=== PATIENT | male | born 1945 | race Caucasian/White ===

== ENCOUNTER 2017-11-02 16:20 | Emergency (ER) | payer MEDICARE, OTHER ==
[~2017-11-02] VITALS: Ht 190.5 cm; Wt 140.0 kg
[2017-11-02 17:28] VITALS: BP 166/79
== END 2017-11-02 17:30 | disposition left against medical advice (07) ==
LOC: ER 16:21
DX: I10 Essential (primary) hypertension (principal); Z53.21 Procedure and treatment not carried out due to patient leaving prior to being seen by health care provider

== ENCOUNTER 2017-11-03 09:24 | Emergency (ER) | payer MEDICARE, OTHER ==
[~2017-11-03] VITALS: Ht 190.5 cm; Wt 139.0 kg
[2017-11-03 09:32] VITALS: BP 172/81
== END 2017-11-03 11:55 | disposition home or self-care (01) ==
LOC: ER 09:25
DX: I10 Essential (primary) hypertension (principal)
CPT/HCPCS: 99281

== ENCOUNTER → 2021-02-28 | Outpatient (CLI) | payer MEDICARE ==
[~2021-02-28] MED LIST: BARIUM SULFATE 340 ML SUSP.RECON***PROCEDURE AREA ONLY**DONT ENTER PO ONE
== END | disposition home or self-care (01) ==
LOC: RAD 10:06
PROVIDERS: ATTEND Family Medicine
DX: R13.10 Dysphagia, unspecified (principal)
CPT/HCPCS: 74220

== ENCOUNTER 2022-07-28 13:01 | Inpatient (IN) | payer MEDICARE ==
[~2022-07-28] VITALS: Ht 188 cm; Wt 109.9 kg
[2022-07-28 13:33] LABS: BASOPHILS # (AUTO) 0.1 X10'3 (0-0.2); BASOPHILS % (AUTO) 0.7 % (0-1); EOSINOPHILS # (AUTO) 0.6 X10'3 (0-0.9); EOSINOPHILS % (AUTO) 4.9 % (0-6); HEMATOCRIT 47.8 % (42.0-52.0); HEMOGLOBIN 15.7 g/dl (14.0-17.9); LYMPHOCYTES # (AUTO) 3.2 X10'3 (1.1-4.8); LYMPHOCYTES % (AUTO) 25.9 % (21-51); MEAN CORPUSCULAR HEMOGLOBIN 28.2 PG (27.0-31.0); MEAN CORPUSCULAR HGB CONC 32.8 g/dL (33.0-36.5); MEAN CORPUSCULAR VOLUME 86.2 FL (78-98); MEAN PLATELET VOLUME 10.6 FL (7.4-10.4); MONOCYTES # (AUTO) 0.9 X10'3 (0-0.9); NEUTROPHILS # (AUTO) 7.5 X10'3 (1.8-7.7); NEUTROPHILS % (AUTO) 61.5 % (42-75); PLATELET COUNT 302 X10'3 (140-440); RED BLOOD COUNT 5.55 X10'6 (4.70-6.10); RED CELL DISTRIBUTION WIDTH 13.4 % (11.5-14.5); WHITE BLOOD COUNT 12.3 X10'3 (4.5-11.0)
--- NOTE | 2022-07-28 13:49 | NUR ---
first contact. pt is ao4 slightly hard of hearing. pt denies dizziness/lightheadedness. pt stated pain left shoulder. no swelling reddness or deformity noted. limited range of motion to affect area. strong pulses. resp even unlabored. skin w/d/i pink.
[2022-07-28 13:54] LABS: ALANINE AMINOTRANSFERASE 23 U/L (12-78); ALBUMIN 3.3 G/DL (3.4-5.0); ALBUMIN/GLOBULIN RATIO 0.8 (1.1-1.5); ALKALINE PHOSPHATASE 72 IU/L (46-116); ANION GAP 12 (8-16); ASPARTATE AMINO TRANSFERASE 41 U/L (10-37); BILIRUBIN,TOTAL 0.5 MG/DL (0.1-1.0); BLOOD UREA NITROGEN 25 MG/DL (7-18); BUN/CREATININE RATIO 15.7 (5.4-32.0); CALCIUM 9.6 MG/DL (8.5-10.1); CHLORIDE 100 MMOL/L (99-107); CREATININE 1.59 MG/DL (0.60-1.10); GLUCOSE 137 MG/DL (70-104); POTASSIUM 3.6 MMOL/L (3.5-5.1); SODIUM 133 MMOL/L (135-145); TOTAL CARBON DIOXIDE 20.9 MMOL/L (24-32); TOTAL PROTEIN 7.4 G/DL (6.4-8.2); eGFR 42 ML/MIN
--- NOTE | 2022-07-28 16:29 | NUR ---
per provider request pt is unable to walk. pt is able to sit at bedside but unable to stand. pt stated he feels dizzy. pt placed back into [facility] provider is aware.
[2022-07-28] MEDS ORDERED: VALS1TAB76 PO (17:02)
[2022-07-28] MEDS ORDERED: GABA600T13 PO (17:02)
[2022-07-28] MEDS ORDERED: METF-436 PO (17:02)
[2022-07-28] MEDS ORDERED: NPH,100V2 SQ (17:02)
[2022-07-28] MEDS ORDERED: SERT-434 PO (17:02)
[2022-07-28] MEDS ORDERED: LIDOcaine 2% 10ml TOPICAL JELLY (Urojet) TP ONE (17:30)
--- NOTE | 2022-07-28 17:52 | NUR ---
ambrocio inserted with no issues. approx 400 ml of yellow urine noted. sample collected and sent to lab
[2022-07-28] MEDS ORDERED: DEXTROSE 15 GM of carb/4 tabs (each vial/BOTTLE has 4 tablets) PO PRN ×2 (18:35)
[2022-07-28] MEDS ORDERED: potassium Cl 20 mEq SR tablet PO PRN ×2 (18:35)
[2022-07-28] MEDS ORDERED: dextrose 50%-water 50ml dispensing syringe IV PRN ×2 (18:35)
[2022-07-28] MEDS ORDERED: acetaminophen 650mg rectal suppository RC PRN (18:35)
[2022-07-28] MEDS ORDERED: morphine 2 MG/ML inj. syringe IV PRN ×2 (18:35)
[2022-07-28] MEDS ORDERED: potassium Cl 40MEQ/1/2NS 520ml 520 ML IV PRN (18:35)
[2022-07-28] MEDS ORDERED: magnesium Cl slow-release 64mg tablet PO PRN (18:35)
[2022-07-28] MEDS ORDERED: PERFLUTREN PROTEIN-A MICROSPHR (Optison) 0.22 MG/ML 3ML VIAL IV ONE (18:35)
[2022-07-28] MEDS ORDERED: glucagon, human recombinant 1mg kit SUBCUT PRN (18:35)
[2022-07-28] MEDS ORDERED: ondansetron/PF 4mg/2ml inj IV PRN (18:35)
[2022-07-28] MEDS ORDERED: magnesium 4gm in 100ml NS 100 ML IV PRN (18:35)
[2022-07-28] MEDS ORDERED: MESSAGE TO PHARMACY PO ONE (18:35)
[2022-07-28 19:04] LABS: CLARITY,URINE CLEAR (Clear); COLOR,URINE YELLOW (Yellow); GLUCOSE, URINE >=1000 mg/dl (Neg); KETONES,URINE NEGATIVE (Neg); LEUKOCYTE ESTERASE ,URINE NEGATIVE (Neg); NITRITES, URINE NEGATIVE (Neg); OCCULT BLOOD,URINE NEGATIVE (Neg); PROTEIN,URINE TRACE mg/dl (Neg); UROBILINOGEN,URINE 0.2 E.U/dL (0.2-1.0)
[2022-07-28 19:05] LABS: UA COLLECTION TYPE NON-SPECIFIED
[2022-07-28 19:07] LABS: BACTERIA,URINE FEW /HPF (Neg); RBC,URINE 0-2 /HPF (0-2); SQUAMOUS EPITHELIAL CELL,UR FEW /LPF (FEW); WBC,URINE 0-4 /HPF (0-4)
[2022-07-28] MEDS: normal saline 1000ml 1,000 ML IV SCH (19:22)
[2022-07-28 19:43] LABS: HEMOGLOBIN A1C 12.4 % (4.5-6.2)
[2022-07-28] MEDS: K and/or MAG REPLACEMENT MC SCH (20:00)
--- NOTE | 2022-07-28 20:21 | NUR ---
Sat patient up for sandwich, HR went up to 120, pt turned pale. RN helped pt back to bed and had his sandwich in bed
[2022-07-28] MEDS: heparin, porcine 5000 units/ml vial SQ SCH (20:52)
[2022-07-28] MEDS: insulin glargine (Lantus) pen - multi-dose SQ SCH (21:55)
[2022-07-29 01:00] VITALS: BP 137/80
--- NOTE | 2022-07-29 01:00 | NUR ---
received pt from er, only complaint from pt was genital spasms from ambrocio, told pt he has right to dc, he said please do, so no complaints from procedure, will monitor urine output and inform day shift of situation
--- NOTE | 2022-07-29 06:38 | NUR ---
Patient in room PCU 3013. I have received report from VERENA ALVES and had the opportunity to ask questions and assume patient care.
[2022-07-29 06:55] VITALS: BP 102/47
[2022-07-29 07:01] LABS: BASOPHILS # (AUTO) 0.1 X10'3 (0-0.2); BASOPHILS % (AUTO) 0.7 % (0-1); EOSINOPHILS # (AUTO) 0.6 X10'3 (0-0.9); EOSINOPHILS % (AUTO) 5.1 % (0-6); HEMATOCRIT 40.5 % (42.0-52.0); HEMOGLOBIN 13.7 g/dl (14.0-17.9); LYMPHOCYTES # (AUTO) 2.6 X10'3 (1.1-4.8); LYMPHOCYTES % (AUTO) 22.3 % (21-51); MEAN CORPUSCULAR HGB CONC 33.9 g/dL (33.0-36.5); MEAN CORPUSCULAR VOLUME 85.5 FL (78-98); MEAN PLATELET VOLUME 10.6 FL (7.4-10.4); MONOCYTES # (AUTO) 0.8 X10'3 (0-0.9); MONOCYTES % (AUTO) 7.3 % (2-12); NEUTROPHILS # (AUTO) 7.4 X10'3 (1.8-7.7); NEUTROPHILS % (AUTO) 64.6 % (42-75); PLATELET COUNT 270 X10'3 (140-440); RED BLOOD COUNT 4.74 X10'6 (4.70-6.10); RED CELL DISTRIBUTION WIDTH 13.2 % (11.5-14.5); WHITE BLOOD COUNT 11.5 X10'3 (4.5-11.0)
[2022-07-29 08:00] VITALS: BP_SYST 107; BP_SYST 110; BP_SYST 124; BP_DIAS 59; BP_DIAS 61; BP_DIAS 73
[2022-07-29] MEDS: normal saline 1000ml 1,000 ML IV SCH ×2 (08:00→16:04)
[2022-07-29] MEDS ORDERED: HYDROchlorothiazide 12.5mg capsule PO SCH (08:00)
[2022-07-29] MEDS ORDERED: losartan 50mg tablet PO SCH (08:00)
[2022-07-29] MEDS: K and/or MAG REPLACEMENT MC SCH ×2 (08:00→20:00)
--- NOTE | 2022-07-29 08:10 | NUR ---
Page Sent promotional table spacer PAGER ID: [phone] MESSAGE: [phone] matthew Marie, pt has been npo but looks like he already had his CT. He is asking if he can have food. please let me know thanks [email or web address]
[2022-07-29 08:20] LABS: LARGE PLATELETS FEW; PLATELET ESTIMATE NORMAL
[2022-07-29] MEDS: gabapentin 300mg capsule PO SCH (08:27)
[2022-07-29] MEDS: sertraline 50mg tablet PO SCH (08:29)
[2022-07-29] MEDS: heparin, porcine 5000 units/ml vial SQ SCH ×2 (08:31→20:41)
[2022-07-29 08:39] LABS: ALANINE AMINOTRANSFERASE 22 U/L (12-78); ALBUMIN 2.7 G/DL (3.4-5.0); ALBUMIN/GLOBULIN RATIO 0.7 (1.1-1.5); ALKALINE PHOSPHATASE 59 IU/L (46-116); ANION GAP 11 (8-16); ASPARTATE AMINO TRANSFERASE 31 U/L (10-37); BILIRUBIN,TOTAL 0.5 MG/DL (0.1-1.0); BLOOD UREA NITROGEN 27 MG/DL (7-18); BUN/CREATININE RATIO 19.7 (5.4-32.0); CALCIUM 8.6 MG/DL (8.5-10.1); CHLORIDE 99 MMOL/L (99-107); CHOL/HDL RATIO 7.3 (0.00-4.99); CHOLESTEROL 232 MG/DL (0-200); CREATININE 1.37 MG/DL (0.60-1.10); GLUCOSE 182 MG/DL (70-104); HDL CHOLESTEROL 32 MG/DL (35-60); LDL CHOLESTEROL 168 MG/DL (50-100); MAGNESIUM 1.9 MG/DL (1.5-2.4); PHOSPHORUS 4.3 MG/DL (2.3-4.5); POTASSIUM 3.6 MMOL/L (3.5-5.1); SODIUM 133 MMOL/L (135-145); TOTAL CARBON DIOXIDE 22.8 MMOL/L (24-32); TOTAL PROTEIN 6.4 G/DL (6.4-8.2); TRIGLYCERIDES 159 MG/DL (20-135); eGFR 50 ML/MIN
--- NOTE | 2022-07-29 08:46 | NUR ---
Diabetes consult: Pt w/ hx of DM A1c 12.4 per EMR. Provided pt w/ written and verbal DM ed w/ RD contact info Addendum: 07/29/22 at [address] Amended: Links added.
[2022-07-29 11:00] VITALS: BP_SYST 120; BP_SYST 124; BP_DIAS 61; BP_DIAS 63
[2022-07-29] MEDS: insulin Lispro (HumaLOG) vial - multi-dose SQ SCH ×2 (13:22→20:31)
[2022-07-29 15:00] VITALS: BP 111/65
--- NOTE | 2022-07-29 17:12 | NUR ---
DAY GOES ON PT SEEMS TO BE MORE CONFUSED, HE IS FIDGETY, MRI WAS MADE AWARE AND THAT HE MAY POSSIBLE NEED A FAMILY MEMBER TO GIVE CONSENT AND MEDICAL HISTORY FOR PROCEDURE. DART NURSE STATED SHE WILL ATTEMPT TO DART PT AND IF UNABLE THE FAMILY WILL NEED TO FINISH THE QUESTIONS TOMORROW.
[2022-07-29 18:00] VITALS: BP 121/51
--- NOTE | 2022-07-29 18:40 | NUR ---
Problems reprioritized. Patient report given, questions answered & plan of care reviewed with gayathri rn, he is aware that i was unable to get an iv pt was hard stick.
[2022-07-29] MEDS: insulin glargine (Lantus) pen - multi-dose SQ SCH (20:36)
[2022-07-30 02:00] VITALS: BP 146/45
[2022-07-30 06:00] VITALS: BP 139/65
[2022-07-30] MEDS: normal saline 1000ml 1,000 ML IV SCH ×2 (06:22→20:40)
--- NOTE | 2022-07-30 07:19 | NUR ---
Patient in room PCU 3013. I have received report from Joe and had the opportunity to ask questions and assume patient care.
[2022-07-30 07:23] LABS: BASOPHILS # (AUTO) 0.1 X10'3 (0-0.2); BASOPHILS % (AUTO) 1.2 % (0-1); EOSINOPHILS # (AUTO) 0.6 X10'3 (0-0.9); EOSINOPHILS % (AUTO) 6.8 % (0-6); HEMATOCRIT 42.2 % (42.0-52.0); HEMOGLOBIN 14.4 g/dl (14.0-17.9); LYMPHOCYTES # (AUTO) 2.1 X10'3 (1.1-4.8); LYMPHOCYTES % (AUTO) 26.1 % (21-51); MEAN CORPUSCULAR HEMOGLOBIN 29.6 PG (27.0-31.0); MEAN CORPUSCULAR HGB CONC 34.1 g/dL (33.0-36.5); MEAN CORPUSCULAR VOLUME 86.8 FL (78-98); MEAN PLATELET VOLUME 10.9 FL (7.4-10.4); MONOCYTES # (AUTO) 0.7 X10'3 (0-0.9); NEUTROPHILS # (AUTO) 4.7 X10'3 (1.8-7.7); NEUTROPHILS % (AUTO) 57.9 % (42-75); PLATELET COUNT 248 X10'3 (140-440); RED BLOOD COUNT 4.86 X10'6 (4.70-6.10); RED CELL DISTRIBUTION WIDTH 13.4 % (11.5-14.5); WHITE BLOOD COUNT 8.2 X10'3 (4.5-11.0)
[2022-07-30] MEDS: heparin, porcine 5000 units/ml vial SQ SCH ×2 (08:00→20:00)
[2022-07-30] MEDS: K and/or MAG REPLACEMENT MC SCH ×2 (08:00→18:53)
[2022-07-30 08:07] LABS: ALANINE AMINOTRANSFERASE 21 U/L (12-78); ALBUMIN 2.9 G/DL (3.4-5.0); ALBUMIN/GLOBULIN RATIO 0.7 (1.1-1.5); ALKALINE PHOSPHATASE 62 IU/L (46-116); ANION GAP 12 (8-16); ASPARTATE AMINO TRANSFERASE 28 U/L (10-37); BILIRUBIN,TOTAL 0.6 MG/DL (0.1-1.0); BLOOD UREA NITROGEN 22 MG/DL (7-18); BUN/CREATININE RATIO 19.5 (5.4-32.0); CALCIUM 8.9 MG/DL (8.5-10.1); CHLORIDE 99 MMOL/L (99-107); CREATININE 1.13 MG/DL (0.60-1.10); GLUCOSE 266 MG/DL (70-104); MAGNESIUM 1.9 MG/DL (1.5-2.4); PHOSPHORUS 3.4 MG/DL (2.3-4.5); SODIUM 132 MMOL/L (135-145); TOTAL CARBON DIOXIDE 20.8 MMOL/L (24-32); TOTAL PROTEIN 6.8 G/DL (6.4-8.2); eGFR 63 ML/MIN
[2022-07-30 08:12] LABS: POTASSIUM 3.7 MMOL/L (3.5-5.1)
--- NOTE | 2022-07-30 08:59 | NUR ---
promotional table spacer PAGER ID: [phone] MESSAGE: [id number] ARLENE CARRIE IS ON CLEAR LIQUID DIET, CAN HE HAVE FOOD. KATHLEEN [phone] Paged FOR NEW DIET, ASKED IF PT CAN HAVE FOOD.
[2022-07-30] MEDS: insulin Lispro (HumaLOG) vial - multi-dose SQ SCH ×2 (09:26→18:37)
[2022-07-30 09:28] LABS: LARGE PLATELETS FEW; PLATELET ESTIMATE NORMAL
[2022-07-30] MEDS: gabapentin 300mg capsule PO SCH (09:28)
[2022-07-30] MEDS: sertraline 50mg tablet PO SCH (09:28)
--- NOTE | 2022-07-30 13:29 | NUR ---
PAGER ID: [phone] MESSAGE: [id number] CARRIE JACOBS, MRI RESULTS ARE IN, PLS READ AND LET ME KNOW IF HE IS OK TO D/C. THANK YOU KATHLEEN [phone]
[2022-07-30] MEDS ORDERED: METF-436 PO (14:04)
[2022-07-30] MEDS ORDERED: VALS160T30 PO (14:06)
[2022-07-30] MEDS ORDERED: AMLO5TAB16 PO (14:06)
--- NOTE | 2022-07-30 17:51 | NUR ---
PT PULLED OUT IV THIS MORNING, PUT NEW ONE IN, THEN PT PULLED OUT SECOND IV WHILE WAITING TO D/C. IS SIGNING MEDICARE WAIVER AND PT IS STAYING ANOTHER NIGHT.
--- NOTE | 2022-07-30 17:59 | NUR ---
DID NOT GET ORTHOSTATIC VITALS DONE, PT WAS READY TO D/C, NOW IS STAYING ANOTHER NIGHT DUE TO SIGNING MEDICARE FORM
[2022-07-30 18:00] VITALS: BP 139/104
[2022-07-30] MEDS: insulin glargine (Lantus) pen - multi-dose SQ SCH (21:00)
[2022-07-31 02:00] VITALS: BP 128/62
[2022-07-31] MEDS: K and/or MAG REPLACEMENT MC SCH (08:00)
[2022-07-31 09:07] LABS: BASOPHILS # (AUTO) 0.1 X10'3 (0-0.2); BASOPHILS % (AUTO) 0.9 % (0-1); EOSINOPHILS # (AUTO) 0.6 X10'3 (0-0.9); EOSINOPHILS % (AUTO) 5.6 % (0-6); HEMATOCRIT 43.8 % (42.0-52.0); HEMOGLOBIN 14.8 g/dl (14.0-17.9); LYMPHOCYTES # (AUTO) 2.7 X10'3 (1.1-4.8); LYMPHOCYTES % (AUTO) 26.2 % (21-51); MEAN CORPUSCULAR HEMOGLOBIN 29.1 PG (27.0-31.0); MEAN CORPUSCULAR HGB CONC 33.8 g/dL (33.0-36.5); MEAN CORPUSCULAR VOLUME 86.2 FL (78-98); MEAN PLATELET VOLUME 10.7 FL (7.4-10.4); MONOCYTES # (AUTO) 0.7 X10'3 (0-0.9); MONOCYTES % (AUTO) 6.9 % (2-12); NEUTROPHILS # (AUTO) 6.3 X10'3 (1.8-7.7); NEUTROPHILS % (AUTO) 60.4 % (42-75); PLATELET COUNT 332 X10'3 (140-440); RED BLOOD COUNT 5.08 X10'6 (4.70-6.10); RED CELL DISTRIBUTION WIDTH 13.4 % (11.5-14.5); WHITE BLOOD COUNT 10.5 X10'3 (4.5-11.0)
[2022-07-31 09:32] LABS: ALANINE AMINOTRANSFERASE 25 U/L (12-78); ALBUMIN 3.1 G/DL (3.4-5.0); ALBUMIN/GLOBULIN RATIO 0.8 (1.1-1.5); ALKALINE PHOSPHATASE 66 IU/L (46-116); ANION GAP 11 (8-16); ASPARTATE AMINO TRANSFERASE 24 U/L (10-37); BILIRUBIN,TOTAL 0.5 MG/DL (0.1-1.0); BLOOD UREA NITROGEN 20 MG/DL (7-18); CALCIUM 8.9 MG/DL (8.5-10.1); CHLORIDE 98 MMOL/L (99-107); CREATININE 1.25 MG/DL (0.60-1.10); GLUCOSE 354 MG/DL (70-104); MAGNESIUM 1.5 MG/DL (1.5-2.4); PHOSPHORUS 3.5 MG/DL (2.3-4.5); POTASSIUM 3.9 MMOL/L (3.5-5.1); SODIUM 134 MMOL/L (135-145); TOTAL CARBON DIOXIDE 25.4 MMOL/L (24-32); TOTAL PROTEIN 7.2 G/DL (6.4-8.2); eGFR 56 ML/MIN
[2022-07-31] MEDS: gabapentin 300mg capsule PO SCH (10:17)
[2022-07-31] MEDS: heparin, porcine 5000 units/ml vial SQ SCH (10:17)
[2022-07-31] MEDS: sertraline 50mg tablet PO SCH (10:17)
[2022-07-31] MEDS: insulin Lispro (HumaLOG) vial - multi-dose SQ SCH ×2 (10:43→13:08)
[2022-08-01] MEDS ORDERED: AMLO5TAB PO (18:33)
[2022-08-01] MEDS ORDERED: METF-436 PO (18:34)
[2022-08-01] MEDS ORDERED: INSU100I25 SQ ×2 (18:35→19:41)
[2022-08-01] MEDS ORDERED: ATOR10TA70 PO (18:38)
[2022-08-01] MEDS ORDERED: MORP-92 PO (18:38)
[2022-08-01] MEDS ORDERED: NPH,100V2 SQ (19:41)
[2022-08-04] MEDS ORDERED: MIDO2.5T14 PO (11:05)
[2022-08-04] MEDS ORDERED: LOSA100T57 PO (11:05)
[2022-08-04] MEDS ORDERED: ROPI0.2540 PO (11:06)
== END 2022-07-31 13:21 | disposition home health service (06) | DRG 640 ==
LOC: ER 13:01 → ED HOLD 18:40 → PCU 3S 07-29 00:15
PROVIDERS: ADMIT Family Medicine; ATTEND Family Medicine
DX: E86.0 Dehydration (principal); N17.0 Acute kidney failure with tubular necrosis; E83.52 Hypercalcemia; E87.1 Hypo-osmolality and hyponatremia; E11.42 Type 2 diabetes mellitus with diabetic polyneuropathy; E11.65 Type 2 diabetes mellitus with hyperglycemia; R29.6 Repeated falls; Z66 Do not resuscitate; R33.9 Retention of urine, unspecified; R55 Syncope and collapse; E86.1 Hypovolemia; D72.829 Elevated white blood cell count, unspecified; F03.90 Unspecified dementia, unspecified severity, without behavioral disturbance, psychotic disturbance, mood disturbance, and anxiety; I10 Essential (primary) hypertension; Z82.3 Family history of stroke; Z87.891 Personal history of nicotine dependence; Z79.4 Long term (current) use of insulin
CPT/HCPCS: 36415; 70450; 70544; 71045; 72128; 80053; 80061; 81001; 82948; 83036; 83605; 83735; 83880; 84100; 84145; 84443; 84484; 85008; 85025; 86592; 87040; 87081; 93005; 93306; 93880; 97161; 97530; 97535; 99285; G0378; J1644; J1815; J7030

== ENCOUNTER 2023-06-06 14:13 | Emergency (ER) | payer MEDICAID, MEDICARE ==
[~2023-06-06] VITALS: Ht 190.5 cm; Wt 90.0 kg
[~2023-06-06 14:13] MED LIST changes: +AMLO5TAB PO; -BARIUM SULFATE 340 ML SUSP.RECON***PROCEDURE AREA ONLY**DONT ENTER PO ONE; +GABA600T13 PO; +INSU100I27 SQ; +LOSA100T58 PO; +METF-900 PO; +MORP-92 PO; +NPH,100V2 SQ; +ROPI1TAB47 PO; +SERT-434 PO
[2023-06-06 17:11] LABS: BILIRUBIN,URINE NEGATIVE (Neg); CLARITY,URINE SLIGHTLY CLOUDY (Clear); COLOR,URINE STRAW (Yellow); GLUCOSE, URINE >=1000 mg/dl (Neg); KETONES,URINE 15 mg/dl (Neg); LEUKOCYTE ESTERASE ,URINE NEGATIVE (Neg); NITRITES, URINE NEGATIVE (Neg); OCCULT BLOOD,URINE NEGATIVE (Neg); PH,URINE 5.5 (4.8-8.0); PROTEIN,URINE NEGATIVE (Neg); UROBILINOGEN,URINE 0.2 E.U/dL (0.2-1.0)
[2023-06-06 17:14] LABS: UA COLLECTION TYPE CLN CATCH MIDSTREAM
[2023-06-06 17:16] LABS: SQUAMOUS EPITHELIAL CELL,UR FEW /LPF (FEW)
[2023-06-06 17:17] LABS: YEAST MANY /HPF (NEGATIVE)
[2023-06-06 17:18] LABS: BACTERIA,URINE FEW /HPF (Neg); RBC,URINE 0-2 /HPF (0-2); WBC,URINE 0-4 /HPF (0-4)
[2023-06-06] MEDS ORDERED: insulin Lispro (HumaLOG) vial - multi-dose SQ ONE (17:35)
[2023-06-06 17:36] LABS: BASOPHILS # (AUTO) 0.1 X10'3 (0-0.2); BASOPHILS % (AUTO) 0.8 % (0-1); EOSINOPHILS # (AUTO) 0.1 X10'3 (0-0.9); EOSINOPHILS % (AUTO) 1.1 % (0-6); HEMATOCRIT 40.6 % (42.0-52.0); HEMOGLOBIN 13.5 g/dl (14.0-17.9); LYMPHOCYTES # (AUTO) 2.1 X10'3 (1.1-4.8); LYMPHOCYTES % (AUTO) 16.7 % (21-51); MEAN CORPUSCULAR HEMOGLOBIN 28.9 PG (27.0-31.0); MEAN CORPUSCULAR HGB CONC 33.4 g/dL (33.0-36.5); MEAN CORPUSCULAR VOLUME 86.5 FL (78-98); MEAN PLATELET VOLUME 11.2 FL (7.4-10.4); MONOCYTES # (AUTO) 0.4 X10'3 (0-0.9); MONOCYTES % (AUTO) 3.4 % (2-12); NEUTROPHILS # (AUTO) 9.9 X10'3 (1.8-7.7); PLATELET COUNT 242 X10'3 (140-440); RED BLOOD COUNT 4.69 X10'6 (4.70-6.10); RED CELL DISTRIBUTION WIDTH 13.6 % (11.5-14.5); WHITE BLOOD COUNT 12.7 X10'3 (4.5-11.0)
[2023-06-06] MEDS ORDERED: normal saline 1000ml 1,000 ML IV ONE (17:40)
[2023-06-06 17:54] LABS: ALANINE AMINOTRANSFERASE 17 U/L (12-78); ALBUMIN 3.1 G/DL (3.4-5.0); ALBUMIN/GLOBULIN RATIO 0.7 (1.1-1.5); ALKALINE PHOSPHATASE 91 IU/L (46-116); ANION GAP 12 (8-16); ASPARTATE AMINO TRANSFERASE 12 U/L (10-37); BILIRUBIN,TOTAL 0.4 MG/DL (0.1-1.0); BLOOD UREA NITROGEN 13 MG/DL (7-18); CALCIUM 9.1 MG/DL (8.5-10.1); CHLORIDE 97 MMOL/L (99-107); POTASSIUM 4.4 MMOL/L (3.5-5.1); SODIUM 134 MMOL/L (135-145); TOTAL CARBON DIOXIDE 25.3 MMOL/L (24-32); TOTAL PROTEIN 7.3 G/DL (6.4-8.2); eCRCL 72 ML/MIN; eGFR 72 ML/MIN
[2023-06-06 18:00] LABS: GLUCOSE 540 MG/DL (70-104)
--- NOTE | 2023-06-06 19:16 | NUR ---
NS BOLUS #2 HUNG VIA GRAVITY, GAVE PT COFFE PER REQUEST PEND INFUSION THEN DC
[2023-06-06 21:33] VITALS: BP 141/80; PULSE 71; RESP 16; TEMP 98.2; O2SAT 98
== END 2023-06-06 21:36 | disposition home or self-care (01) ==
LOC: ER 14:14
DX: E11.65 Type 2 diabetes mellitus with hyperglycemia (principal); I10 Essential (primary) hypertension; E86.0 Dehydration; Z79.899 Other long term (current) drug therapy; Z79.84 Long term (current) use of oral hypoglycemic drugs; Z91.148 Patient's other noncompliance with medication regimen for other reason
CPT/HCPCS: 36415; 71045; 80053; 81001; 82948; 85025; 99284; J1815; J7030

== ENCOUNTER 2023-06-07 18:09 | Emergency (ER) | payer MEDICARE, OTHER ==
[~2023-06-07] VITALS: Ht 190.5 cm; Wt 88.6 kg
[2023-06-07 19:07] LABS: BASOPHILS # (AUTO) 0.1 X10'3 (0-0.2); BASOPHILS % (AUTO) 1.2 % (0-1); EOSINOPHILS # (AUTO) 0.1 X10'3 (0-0.9); EOSINOPHILS % (AUTO) 1.1 % (0-6); HEMATOCRIT 42.8 % (42.0-52.0); LYMPHOCYTES # (AUTO) 1.6 X10'3 (1.1-4.8); LYMPHOCYTES % (AUTO) 17.5 % (21-51); MEAN CORPUSCULAR HEMOGLOBIN 28.9 PG (27.0-31.0); MEAN CORPUSCULAR HGB CONC 32.6 g/dL (33.0-36.5); MEAN CORPUSCULAR VOLUME 88.7 FL (78-98); MEAN PLATELET VOLUME 11.4 FL (7.4-10.4); MONOCYTES # (AUTO) 0.5 X10'3 (0-0.9); NEUTROPHILS # (AUTO) 6.9 X10'3 (1.8-7.7); NEUTROPHILS % (AUTO) 75.2 % (42-75); PLATELET COUNT 292 X10'3 (140-440); RED BLOOD COUNT 4.82 X10'6 (4.70-6.10); RED CELL DISTRIBUTION WIDTH 13.1 % (11.5-14.5); WHITE BLOOD COUNT 9.2 X10'3 (4.5-11.0)
[2023-06-07 19:15] LABS: ALANINE AMINOTRANSFERASE 18 U/L (12-78); ALBUMIN 3.2 G/DL (3.4-5.0); ALBUMIN/GLOBULIN RATIO 0.8 (1.1-1.5); ALKALINE PHOSPHATASE 101 IU/L (46-116); ANION GAP 10 (8-16); ASPARTATE AMINO TRANSFERASE 10 U/L (10-37); BILIRUBIN,TOTAL 0.4 MG/DL (0.1-1.0); BLOOD UREA NITROGEN 15 MG/DL (7-18); BUN/CREATININE RATIO 13.4 (10.0-20.0); CHLORIDE 93 MMOL/L (99-107); CREATININE 1.12 MG/DL (0.60-1.10); POTASSIUM 4.3 MMOL/L (3.5-5.1); SODIUM 128 MMOL/L (135-145); TOTAL CARBON DIOXIDE 25.1 MMOL/L (24-32); eCRCL 64 ML/MIN; eGFR 63 ML/MIN
[2023-06-07 19:30] LABS: GLUCOSE 914 MG/DL (70-104)
[2023-06-07] MEDS ORDERED: normal saline 1000ML IV soln IVB ONE (19:30)
[2023-06-07] MEDS ORDERED: insulin regular, human 10 units/0.1 ml syringe SQ ONE (19:30)
[2023-06-07 20:20] LABS: LARGE PLATELETS FEW; PLATELET ESTIMATE NORMAL; STOMATOCYTES 1+
[2023-06-07 21:16] LABS: BILIRUBIN,URINE NEGATIVE (Neg); CLARITY,URINE CLEAR (Clear); COLOR,URINE STRAW (Yellow); GLUCOSE, URINE >=1000 mg/dl (Neg); KETONES,URINE TRACE mg/dl (Neg); LEUKOCYTE ESTERASE ,URINE NEGATIVE (Neg); NITRITES, URINE NEGATIVE (Neg); OCCULT BLOOD,URINE NEGATIVE (Neg); PH,URINE 5.5 (4.8-8.0); PROTEIN,URINE NEGATIVE (Neg); UROBILINOGEN,URINE 0.2 E.U/dL (0.2-1.0)
[2023-06-07 21:23] LABS: UA COLLECTION TYPE CLN CATCH MIDSTREAM
[2023-06-07 21:24] LABS: MUCUS STRANDS NONE SEEN /LPF (Neg); SQUAMOUS EPITHELIAL CELL,UR FEW /LPF (FEW)
[2023-06-07 21:25] LABS: BACTERIA,URINE FEW /HPF (Neg); RBC,URINE 0-2 /HPF (0-2); WBC,URINE 0-4 /HPF (0-4)
[2023-06-07 21:26] LABS: YEAST MODERATE /HPF (NEGATIVE)
[2023-06-07 21:27] LABS: URINE AMPHETAMINE SCREEN NEGATIVE (Neg); URINE BARBITUATE SCREEN NEGATIVE (Neg); URINE BENZODIAZEPINES SCREEN NEGATIVE (Neg); URINE CANNABINOID SCREEN NEGATIVE (Neg); URINE COCAINE SCREEN NEGATIVE (Neg); URINE OPIATE SCREEN NEGATIVE (Neg); URINE PHENCYCLIDINE SCREEN NEGATIVE (Neg)
--- NOTE | 2023-06-07 22:25 | NUR ---
ACCUCHECK AT 2200 WAS "HI" NS BOLUS INFUSING. WILL RECHECK AFTER BOLUS COMPLETE
--- NOTE | 2023-06-07 23:32 | NUR ---
pt requested a bedside chair to sit in. chair provided.
--- NOTE | 2023-06-08 01:20 | NUR ---
pt restless, pt up and down put of bed. pt requested something to help him sleep md informed. awaiting orders
[2023-06-08] MEDS ORDERED: LORazepam 1 MG tablet PO ONE (01:25)
[2023-06-08 03:41] LABS: ALANINE AMINOTRANSFERASE 16 U/L (12-78); ALBUMIN 2.7 G/DL (3.4-5.0); ALBUMIN/GLOBULIN RATIO 0.8 (1.1-1.5); ALKALINE PHOSPHATASE 81 IU/L (46-116); ANION GAP 9 (8-16); ASPARTATE AMINO TRANSFERASE 11 U/L (10-37); BILIRUBIN,TOTAL 0.4 MG/DL (0.1-1.0); BLOOD UREA NITROGEN 11 MG/DL (7-18); BUN/CREATININE RATIO 12.8 (10.0-20.0); CALCIUM 8.6 MG/DL (8.5-10.1); CHLORIDE 103 MMOL/L (99-107); CREATININE 0.86 MG/DL (0.60-1.10); POTASSIUM 3.6 MMOL/L (3.5-5.1); SODIUM 138 MMOL/L (135-145); TOTAL CARBON DIOXIDE 25.9 MMOL/L (24-32); TOTAL PROTEIN 5.9 G/DL (6.4-8.2); eCRCL 83 ML/MIN; eGFR 86 ML/MIN
[2023-06-08 03:55] LABS: GLUCOSE 422 MG/DL (70-104)
--- NOTE | 2023-06-08 06:38 | NUR ---
Patient up to BR with cane. [facility] brought patient a walker to use. Patient's last BG was over 400 around 0345 this morning. Patient does not know his medications. Med Rec has meds but "Zero" quantatiy of pills. RN to speak to Dr Wallace for protocol orders. No distress observed. Continue to monitor.
--- NOTE | 2023-06-08 06:50 | NUR ---
RN went to speak to Dr. Wallace about placing patient on protocol and possibly starting K+ replacemnt. RN advised Dr. Wallace that the night doctor (jackie Robledo LVN) deferred the patient orders to day shift. Dr. Wallace stated that's "B.S." She stated she just saw Ohlfs walk by. She texted him and asked if he would [facility] and [facility] Continue to monitor.
[2023-06-08] MEDS ORDERED: insulin regular, human 10 units/0.1 ml syringe SQ ONE (07:45)
--- NOTE | 2023-06-08 08:15 | NUR ---
Patient sitting up and eating breakfast. Patient's BG is 439. Continue to monitor.
[2023-06-08] MEDS: olanzapine 10mg tablet PO SCH (08:54)
--- NOTE | 2023-06-08 09:03 | NUR ---
Patient ate 100% of his breakfast at 67 carbs. No protocol order yet as Dr Wallace states she has to go over the entire chart before she will order anything. Dr. Singh did "medically clear" the patient for eval. However, patient's BG is 439 prior to breakfast and only 6 units of regular insulin ordered. RN would like the Hyperglycemic Protocol order. Dr. Wallace aware. Patient is sitting up in bed and is calm and cooperative. Continue to monitor.
--- NOTE | 2023-06-08 09:55 | NUR ---
Patient came out of the BR without any pants or underwear. Serafin Bryan asked patient what was going on. Patient stated he needs a new set of pants. Patient was incontinent of stool. Serafin cleaned patient and gave him a pull up and a new pair of pants. Continue to monitor.
[2023-06-08] MEDS ORDERED: dextrose 50%-water 50ml dispensing syringe IV PRN ×2 (11:45)
[2023-06-08] MEDS ORDERED: glucagon, human recombinant 1mg kit SUBCUT PRN (11:45)
[2023-06-08] MEDS ORDERED: DEXTROSE 15 GM of carb/4 tabs (each vial/BOTTLE has 4 tablets) PO PRN (11:45)
--- NOTE | 2023-06-08 11:47 | NUR ---
Patient sitting up in bed. No distress observed. Continue to monitor.
--- NOTE | 2023-06-08 12:17 | NUR ---
Patient eating lunch. BG 409. Continue to monitor.
[2023-06-08] MEDS: insulin Lispro (HumaLOG) vial - multi-dose SQ SCH ×3 (12:49→21:13)
--- NOTE | 2023-06-08 13:39 | NUR ---
Patient ambulatory to recliner. No distress observed. Continue to monitor.
--- NOTE | 2023-06-08 14:50 | NUR ---
at bedside visiting with patient. No distress observed. Continue to monitor.
--- NOTE | 2023-06-08 15:45 | NUR ---
Patient is not on a Mental Health Hold. Patient has no psych HX but does have HX of Dementia. states patient cannot go home and won't safety plan. RN sent a Electronics Tester Consult and page to per Dr. Singh. Continue to monitor.
--- NOTE | 2023-06-08 17:12 | NUR ---
Patient reclining in bed with the light off. No distress observed. Continue to monitor.
--- NOTE | 2023-06-08 19:51 | NUR ---
The patient has been quietly resting on his bed. He was very pleasant with the nursing assessment. When asked why he was here he stated that he was not taking care of himself. When asked to elaborate he replied "I wasn't taking my insulin on time" He denies dementia. He is only oriented to himself and who the president is and he is aware that he is in a hospital.
--- NOTE | 2023-06-08 20:51 | NUR ---
The patient's blood glucose is 427 discussed protocol dose with Zack FAY and order received for coverage for [facility].
[2023-06-08] MEDS ORDERED: insulin Lispro (HumaLOG) vial - multi-dose SQ ONE (20:55)
[2023-06-08] MEDS: ROPINIRole 1mg tablet PO SCH (21:03)
[2023-06-08] MEDS: gabapentin 400mg capsule PO SCH (21:03)
[2023-06-08] MEDS: insulin glargine (Lantus) pen - multi-dose SQ SCH (21:11)
--- NOTE | 2023-06-08 22:13 | NUR ---
The patient is resting on his bed.
--- NOTE | 2023-06-08 23:42 | NUR ---
The patient has been resting on his bed and periodically appears to be asleep. He awakens periodically.
--- NOTE | 2023-06-09 01:00 | NUR ---
The patient appears to be sleeping
--- NOTE | 2023-06-09 03:05 | NUR ---
The patient appears to be sleeping
--- NOTE | 2023-06-09 05:00 | NUR ---
The patient appears to be sleeping
--- NOTE | 2023-06-09 06:55 | NUR ---
Patient is sleeping in bed. No s/s of distress noted.
[2023-06-09] MEDS: losartan 50mg tablet PO SCH (08:38)
[2023-06-09] MEDS: sertraline 50mg tablet PO SCH (08:38)
[2023-06-09] MEDS: olanzapine 10mg tablet PO SCH (08:39)
[2023-06-09] MEDS: gabapentin 400mg capsule PO SCH ×3 (08:39→20:21)
[2023-06-09] MEDS: insulin Lispro (HumaLOG) vial - multi-dose SQ SCH ×4 (09:12→20:38)
--- NOTE | 2023-06-09 09:48 | NUR ---
Patient awoke for breakfast, and then was given 11 units of insulin. Patient is on level 3. Patient sleeping in bed at this time. Respirations are even and nonlabored. Patient appears comfortable.
--- NOTE | 2023-06-09 11:37 | NUR ---
RN breaking primary nurse for lunch. Pt asleep on right side.
--- NOTE | 2023-06-09 12:18 | NUR ---
Patient is sitting in his recliner eating lunch.
--- NOTE | 2023-06-09 13:25 | NUR ---
Patient appears to have aspirated part of his lunch. Patient was coughing after eating. Attempted to give 13:00 Neurontin, but patient vomited it up saying that he can't keep anything down right now. Patient's 02 sat is 92, this a.m. it was 96 and 99 on admission. Notified M.D. who will come over and see patient.
--- NOTE | 2023-06-09 16:57 | NUR ---
Patient up to the bathroom with assistance, patient is unsteady on feet with walker. Patient back to bed.
--- NOTE | 2023-06-09 17:33 | NUR ---
Patient sleeping in bed. Accuchecks today were 233, 256, and 135. Patient is not ready to eat his dinner at this time.
--- NOTE | 2023-06-09 19:26 | NUR ---
The patient is up to use the bathroom then he sat in his chair to eat dinner. He is very pleasant. He ate almost his entire tray. He is some confusion to date.
[2023-06-09] MEDS: ROPINIRole 1mg tablet PO SCH (20:21)
[2023-06-09] MEDS: insulin glargine (Lantus) pen - multi-dose SQ SCH (20:37)
--- NOTE | 2023-06-09 20:44 | NUR ---
The patient appears to be sleeping
--- NOTE | 2023-06-09 23:04 | NUR ---
The patient appears to be sleeping
--- NOTE | 2023-06-10 01:06 | NUR ---
The patient appears to be sleeping
--- NOTE | 2023-06-10 05:06 | NUR ---
The patient appears to be sleeping.
--- NOTE | 2023-06-10 06:29 | NUR ---
Patient lying on his right sleep apparently sleeping. RR even and unlabored. No s/sx of distress.
[2023-06-10] MEDS: sertraline 50mg tablet PO SCH (08:01)
[2023-06-10] MEDS: gabapentin 400mg capsule PO SCH ×3 (08:02→21:00)
[2023-06-10] MEDS: olanzapine 10mg tablet PO SCH (08:02)
[2023-06-10] MEDS: losartan 50mg tablet PO SCH (08:02)
[2023-06-10] MEDS: insulin Lispro (HumaLOG) vial - multi-dose SQ SCH ×3 (08:59→18:12)
--- NOTE | 2023-06-10 09:06 | NUR ---
Patient asleep in recliner after finshing his breakfast. No s/sx of distress.
--- NOTE | 2023-06-10 09:55 | NUR ---
Patient on his bed in suping position. He appears to be sleeping. No s/sx of distress.
--- NOTE | 2023-06-10 11:43 | NUR ---
Patient sleeping on his left side. Resp. even and unlabored. No s/sx of distress.
--- NOTE | 2023-06-10 12:47 | NUR ---
Pt. awake and eating lunch in chair. Addendum: 06/10/23 at 1247 by NIURKA RN breaking primary RN for lunch.
--- NOTE | 2023-06-10 13:22 | NUR ---
Patient napping in recliner next to his bed.
--- NOTE | 2023-06-10 14:43 | NUR ---
Patient sleeping on his left side. RR even and unlabored. No s/sx of distress.
--- NOTE | 2023-06-10 16:43 | NUR ---
Patient sitting in a recliner with legs up taking a nap.
--- NOTE | 2023-06-10 16:47 | NUR ---
Patient appears to be sleeping
--- NOTE | 2023-06-10 17:43 | NUR ---
Patient sitting at bedside eating his dinner meal. Denies needs.
--- NOTE | 2023-06-10 18:33 | NUR ---
Received report from Bryan Silva RN at 18:15. Client was resting in chair. Resp even and unlabored. Pleasant and cooperative.
--- NOTE | 2023-06-10 19:46 | NUR ---
Resting with eye's closed, right side. Resp even and unlabored.
[2023-06-10] MEDS: ROPINIRole 1mg tablet PO SCH (21:00)
--- NOTE | 2023-06-10 21:30 | NUR ---
Client self transferred from chair to bed. Fell asleep. Client wakes briefly but does not stay awake long enough to take oral meds. Client is confused and unable to follow directions. HS blood glucose was 220. He received 17 units Lantus in back of left arm. Sleeping soundly. Resp even and unlabored.
[2023-06-10] MEDS: insulin glargine (Lantus) pen - multi-dose SQ SCH (21:55)
--- NOTE | 2023-06-10 23:00 | NUR ---
Client is resting on right side with eye's closed. Resp even and unlabored.
--- NOTE | 2023-06-11 00:48 | NUR ---
Sleeping. Resp even and unlabored.
--- NOTE | 2023-06-11 01:15 | NUR ---
Awake at 01:00. Ambulated to restroom using walker, with the assistance of Serafin Lindquist. A small skin tear was noted on his right elbow. Antibiotic ointment and a dressing was applied. Bedding was changed. Water was offered and declined by client. Client returned to bed and fell asleep w/o difficulty.
--- NOTE | 2023-06-11 03:00 | NUR ---
Sleeping on back. Resp even and unlabored.
--- NOTE | 2023-06-11 04:44 | NUR ---
Ambulated to restroom using walker, assisted by Serafin Lindquist. Returned to chair. Given hot beverage.
--- NOTE | 2023-06-11 05:45 | NUR ---
Resting in chair. Resp even and unlabored.
--- NOTE | 2023-06-11 07:01 | NUR ---
Patient asleep in bed. No distress observed. Continue to monitor.
--- NOTE | 2023-06-11 08:22 | NUR ---
Patient eating breakfast. No distress observed. Continue to monitor.
[2023-06-11] MEDS: gabapentin 400mg capsule PO SCH ×3 (08:58→20:53)
[2023-06-11] MEDS: sertraline 50mg tablet PO SCH (08:58)
[2023-06-11] MEDS: olanzapine 10mg tablet PO SCH (08:58)
[2023-06-11] MEDS: losartan 50mg tablet PO SCH (08:59)
[2023-06-11] MEDS: insulin Lispro (HumaLOG) vial - multi-dose SQ SCH ×3 (09:06→18:17)
--- NOTE | 2023-06-11 10:10 | NUR ---
Patient reclining and sleeping in his chair. No distress observed. Continue to monitor.
--- NOTE | 2023-06-11 11:08 | NUR ---
Patient ambulatory to BR with walker, steady gait. No distress observed. Continue to monitor.
--- NOTE | 2023-06-11 12:52 | NUR ---
Patient's BG was 251 this am. RN went up from level 3 to level 4. This afternoon patient's BG was 212. RN went up from a level 4 to a level 5, until BG prior to meal is under 200. Continue to monitor.
--- NOTE | 2023-06-11 13:13 | NUR ---
pt just given meds resting peacefully in bed 23 breaking nurse
--- NOTE | 2023-06-11 14:41 | NUR ---
Patient ambulatory to BR with walker, steady gait. No distress observed. Continue to monitor.
--- NOTE | 2023-06-11 16:35 | NUR ---
Patient was awake and re-adjusting himself in the recliner. No distress observed. Continue to monitor.
--- NOTE | 2023-06-11 19:45 | NUR ---
Patient pleasant and cooperative with care; compliant with medication. HS BS 213; d/t AM BS his Lantus was increased to 20units this shift. Patient rests on and off. Presents confused and repeats questions at times; easily directed. Patient gets up occassionly to use the restroom with use on FFW.
--- NOTE | 2023-06-11 20:42 | NUR ---
Patient is resting quietly in his recliner. Dementia is the norm/baseline. Patient is cooperative and friendly.
[2023-06-11] MEDS: ROPINIRole 1mg tablet PO SCH (20:53)
[2023-06-11] MEDS: insulin glargine (Lantus) pen - multi-dose SQ SCH (20:55)
--- NOTE | 2023-06-11 21:00 | NUR ---
Note alla in EDM - 06/11/23 at 2322 by JACEY Patient is well oriented. S/I, no plan. Patient states his six months ago. He has felt suicidal since that time. The patient denies H/I. He denies audible hallucinations. Patient states he saw a shadow like figure on the curtain, it mimicked his own movements.
--- NOTE | 2023-06-11 21:00 | NUR ---
Note alla in EDM - 06/11/23 at 2320 by JACEY Patient exhibits dementia, no change from baseline. Patient is well oriented. S/I, no plan. Patient states his six months ago. He has felt suicidal since that time. The patient denies H/I. He denies audible hallucinations. Patient states he saw a shadow like figure on the curtain, it mimicked his own movements.
--- NOTE | 2023-06-11 22:54 | NUR ---
IV 50 percent 25 G Dextrose was administered slowly over one minute. Patient awoke and began talking. He is back to his baseline now. Saline lock flushed. Patient is being supplied with a turkey sandwich. Patient will be transfered to room 13 for additional ALS care. Additional blood was drawn for labs at the time of IV start. Patient tollerated well.
--- NOTE | 2023-06-11 23:21 | NUR ---
Patient up to bathroom. He toilets without problem. Patient returns to his recliner to sleep.
--- NOTE | 2023-06-11 23:22 | NUR ---
Patient resting in chair at bedside; frequently wakes up and self repositions. No apparent distress.
--- NOTE | 2023-06-12 00:41 | NUR ---
Patient awakens, he ambulates with his walker. Patient requests and was given fresh ice water. He returns to bed.
[2023-06-12] MEDS ORDERED: TETanus/Pertussis (Acell)/Diphther VAC/PF (Tdap-Adult) 0.5ml syringe IMVAC ONE (03:15)
[2023-06-12] MEDS ORDERED: acetaminophen 325mg tablet PO ONE (03:15)
--- NOTE | 2023-06-12 03:46 | NUR ---
0245 patient fell when getting up to use the restroom; skin tear to R elbow, L elbow, L knee and open area to the back of his head noted. 0255 VSS; c/o 10/[address] Yuan informed by RN; NOs for cervical spine and head CT; Tylenol provided. Patient encouraged to alert teletypewriter installer when he needs to ambulate.
--- NOTE | 2023-06-12 04:27 | NUR ---
Awaiting ER MD to evaluate patient.
--- NOTE | 2023-06-12 04:28 | NUR ---
Incident Report/ Fall event completed. Guidance Secretary advised of probable need for sitter at bedside on day shift.
--- NOTE | 2023-06-12 04:38 | NUR ---
dt given IM to left deltoid by Miranda James LVN. Patient gave verbal consent. Patient tollerated well.
--- NOTE | 2023-06-12 06:01 | NUR ---
Patients occipital lac was stapled by ER MD. Patient tollerated well. Patient is now napping in his chair.
--- NOTE | 2023-06-12 06:38 | NUR ---
PT MOVED TO RM 7 WITH SITTER.
--- NOTE | 2023-06-12 06:39 | NUR ---
RECEIVED REPORT, ASSUMED PT CARE. PT SLEEPING AWOKE EASILY. PT IN NAD. VS WNL.
[2023-06-12] MEDS: olanzapine 10mg tablet PO SCH (08:23)
[2023-06-12] MEDS: gabapentin 400mg capsule PO SCH ×3 (08:23→23:53)
[2023-06-12] MEDS: sertraline 50mg tablet PO SCH (08:24)
[2023-06-12] MEDS: losartan 50mg tablet PO SCH (08:24)
[2023-06-12] MEDS: insulin Lispro (HumaLOG) vial - multi-dose SQ SCH ×3 (08:40→17:52)
--- NOTE | 2023-06-12 09:00 | NUR ---
PT RESTING QUIETLY IN BED WITH SITTER AT BS.
--- NOTE | 2023-06-12 10:56 | NUR ---
Tech used 100 ml of sterile water to irrigate PT LEFT Elbow. PT then placed non-adherent over wound, and coban was applied to keep non-adherent in place.
--- NOTE | 2023-06-12 11:05 | NUR ---
PT UP IN CHAIR NEXT TO BED, SITTER AT BS
--- NOTE | 2023-06-12 13:00 | NUR ---
PT WITH NO CHANGE FROM PREVIOUS. SITTER AT BS
--- NOTE | 2023-06-12 14:45 | NUR ---
René gold in ED - 06/12/23 at 1447 by SHARLENE BLOOD DRAWN FROM PIV FOR LAB. PT TOLERATED WELL
--- NOTE | 2023-06-12 16:16 | NUR ---
PT ALERT, ACTIVE AND RESTING WITH SITTER AT BS.
--- NOTE | 2023-06-12 18:30 | NUR ---
Patilent is sitting on edge of bed. Patient is cooperative. Oriented to person and place. Dementia is baseline.
--- NOTE | 2023-06-12 19:30 | NUR ---
Patient is able to ambulate to bathroom with close guidance. He uses his walker. The patient does not have a bedside sitter as ordered. There are no sitters available. The overflow tech is keeping as close an observation as possible.
[2023-06-12] MEDS: insulin glargine (Lantus) pen - multi-dose SQ SCH (21:00)
--- NOTE | 2023-06-12 21:08 | NUR ---
Pt woke up, pulled down pants and urinated on the floor. Pt placed in clean clothes and is back in bed resting.
--- NOTE | 2023-06-12 21:15 | NUR ---
Patient awoke, he sat at side of bed. Patient stood up and voided. Patient was cleaned along with bedding. He returned to sleep.
--- NOTE | 2023-06-12 21:31 | NUR ---
Blood glucose was taken prior to patients Lantus administration. Blood sugar is 63. This quality analyst/technical writer addressed blood sugar with chargemaster analyst. This quality analyst/technical writer non-administers HS Lantus. No am blood sugar noted on shart. Patient is sluggish to respond to any verbal stimuli. This quality analyst/technical writer planned to provide patient with complex carbs, he is not awake enough to support oral intake. Pupils are pinpoint and equal. 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
--- NOTE | 2023-06-12 21:50 | NUR ---
B/P 103/53, Pulse 68, Resp 16, Pulse Ox 93 percent on room air, Temp is 98.5 temporal. Patient is pink, warm, and dry.
[2023-06-12] MEDS ORDERED: dextrose 50%-water 50ml dispensing syringe IV ONE (22:45)
[2023-06-12] MEDS ORDERED: dextrose 5%-normal saline 1,000 ML IV SCH (23:05)
--- NOTE | 2023-06-12 23:10 | NUR ---
Patient moved to bed 13 for more direct observation. He is now awake and oriented to person and place. Patient has dementia as his baseline. Dr. Jeffery at bedside.
[2023-06-12 23:23] LABS: BASOPHILS # (AUTO) 0.1 X10'3 (0-0.2); BASOPHILS % (AUTO) 0.8 % (0-1); EOSINOPHILS # (AUTO) 0.3 X10'3 (0-0.9); EOSINOPHILS % (AUTO) 3.8 % (0-6); HEMATOCRIT 37.3 % (42.0-52.0); HEMOGLOBIN 12.7 g/dl (14.0-17.9); LYMPHOCYTES # (AUTO) 2.5 X10'3 (1.1-4.8); LYMPHOCYTES % (AUTO) 27.2 % (21-51); MEAN CORPUSCULAR HEMOGLOBIN 29.6 PG (27.0-31.0); MEAN PLATELET VOLUME 10.1 FL (7.4-10.4); MONOCYTES # (AUTO) 0.6 X10'3 (0-0.9); MONOCYTES % (AUTO) 6.9 % (2-12); NEUTROPHILS # (AUTO) 5.6 X10'3 (1.8-7.7); NEUTROPHILS % (AUTO) 61.3 % (42-75); PLATELET COUNT 265 X10'3 (140-440); RED BLOOD COUNT 4.29 X10'6 (4.70-6.10); RED CELL DISTRIBUTION WIDTH 13.8 % (11.5-14.5); WHITE BLOOD COUNT 9.2 X10'3 (4.5-11.0)
[2023-06-12 23:26] LABS: ALANINE AMINOTRANSFERASE 11 U/L (12-78); ALBUMIN 2.6 G/DL (3.4-5.0); ALBUMIN/GLOBULIN RATIO 0.7 (1.1-1.5); ALKALINE PHOSPHATASE 69 IU/L (46-116); ANION GAP 6 (8-16); ASPARTATE AMINO TRANSFERASE 13 U/L (10-37); BILIRUBIN,TOTAL 0.3 MG/DL (0.1-1.0); BLOOD UREA NITROGEN 12 MG/DL (7-18); BUN/CREATININE RATIO 15.2 (10.0-20.0); CALCIUM 9.6 MG/DL (8.5-10.1); CHLORIDE 107 MMOL/L (99-107); CREATININE 0.79 MG/DL (0.60-1.10); GLUCOSE 98 MG/DL (70-104); SODIUM 141 MMOL/L (135-145); TOTAL CARBON DIOXIDE 28.4 MMOL/L (24-32); TOTAL PROTEIN 6.2 G/DL (6.4-8.2); eCRCL 91 ML/MIN; eGFR > 90 ML/MIN
[2023-06-12] MEDS: ROPINIRole 1mg tablet PO SCH (23:53)
--- NOTE | 2023-06-13 07:24 | NUR ---
PT BG AT 0715 WAS 233 PER LUIZ POLISHER ALUMINUM. RN NOTIFIED DR POST AND PER DR POST CXL D5NS ABD CONT TO MONITOR. FLUIDS STOPPED/ORD CXL.
[2023-06-13] MEDS: insulin Lispro (HumaLOG) vial - multi-dose SQ SCH ×3 (09:51→18:29)
[2023-06-13] MEDS: sertraline 50mg tablet PO SCH (09:52)
[2023-06-13] MEDS: losartan 50mg tablet PO SCH (09:55)
[2023-06-13] MEDS: olanzapine 10mg tablet PO SCH (09:56)
[2023-06-13] MEDS: gabapentin 400mg capsule PO SCH ×3 (09:56→21:29)
--- NOTE | 2023-06-13 14:00 | NUR ---
blood sugar accuck results are not transferring from glucometer to pt chart. per ino elder pre lunch accuck was 355. pt moved to level 3.
--- NOTE | 2023-06-13 17:12 | NUR ---
PER HOWIE CHURCH ADMINISTRATOR PT BG 193. PT DID NOT RECEIVE DINNER TRAY. RN CALLED AND LEFT AND SENT FAX REQUEST.
[2023-06-13] MEDS: insulin glargine (Lantus) pen - multi-dose SQ SCH (21:00)
[2023-06-13] MEDS: ROPINIRole 1mg tablet PO SCH (21:29)
--- NOTE | 2023-06-13 21:32 | NUR ---
HS BG 45, PT ASYMPTOMATIC. 2 ORANGE JUICES AND TURKEY SANDWICH PROVIDED, PT ATE/ DRANK 100%. HS MEDS ADMIN PER ORDER W/ NO ASE. VSS, AFEBRILE, NAD NOTED OR OBSERVED, DENIES PAIN. PRN NOTIFIED WILL F/U BG.
--- NOTE | 2023-06-14 00:15 | NUR ---
Client transferred from Main ED at 23:15 in ED bed. Clients was given 20 units of Lantus in posterior Left arm. AM Blood Glucose was 233, PM Blood Glucose was 174. Lantus dose on 06/12/2023 was held. Lantus dose on 06/11/2023 was 20 units. Due to recent hypogly Addendum: 06/14/23 at 0025 by [email or web address] Due to 1. recent episode of hypoglycemia and the 2. last Lantus dose being withheld, the dose was not increased.
--- NOTE | 2023-06-14 00:29 | NUR ---
Resting on right side. Resp even and unlabored at 15/min. Client wakes easily for Lantus injection.
--- NOTE | 2023-06-14 02:41 | NUR ---
Ambulated to restroom at 02:30 using walker accompanied by staff. Bed linens were changed. Client sat in recliner with feet raised. Resp even and unlabored.
--- NOTE | 2023-06-14 04:47 | NUR ---
Ambulated to restroom at 0440 using walker, accompanied by Tech. Pratik Sitting in chair. Resp even and unlabored.
--- NOTE | 2023-06-14 06:57 | NUR ---
Patient was ambulatory to BR when RN first arrived. Patient is reclining in his recliner and sleeping. Patient with nonlabored respirations and re-adjusting himself slightly. Sitter at bedside. Continue to monitor.
--- NOTE | 2023-06-14 06:58 | NUR ---
Per Torrey Brown RN. Patient is a level 2 insulin protocol. Continue to monitor.
[2023-06-14] MEDS: losartan 50mg tablet PO SCH ×2 (08:00→08:34)
--- NOTE | 2023-06-14 08:22 | NUR ---
Patient sitting up and eating. No distress observed. Continue to monitor.
[2023-06-14] MEDS: sertraline 50mg tablet PO SCH (08:35)
[2023-06-14] MEDS: gabapentin 400mg capsule PO SCH ×3 (08:35→20:36)
[2023-06-14] MEDS: olanzapine 10mg tablet PO SCH (08:35)
[2023-06-14] MEDS: insulin Lispro (HumaLOG) vial - multi-dose SQ SCH ×3 (09:40→20:48)
--- NOTE | 2023-06-14 10:17 | NUR ---
Patient is sleeping supine. No distress observed. Continue to monitor.
--- NOTE | 2023-06-14 12:16 | NUR ---
Patient eating lunch. BG was 290. RN went up a level. No distress observed. Continue to monitor.
--- NOTE | 2023-06-14 13:50 | NUR ---
Patient dozing in his recliner. No distress observed. Continue to monitor.
--- NOTE | 2023-06-14 15:10 | NUR ---
RN gave patient a snakc of a sugar free jello and a piece of cheddar cheese. Patient is pleasant and in no distress. Continue to monitor.
--- NOTE | 2023-06-14 16:39 | NUR ---
visiting patient. No distress observed. Continue to monitor.
--- NOTE | 2023-06-14 17:42 | NUR ---
and son left. They left patient a tablet and a lease out man. Ptient appears content. No distress observed. Continue to monitor.
--- NOTE | 2023-06-14 18:30 | NUR ---
Pt's blood sugar before dinner is 85.
--- NOTE | 2023-06-14 18:54 | NUR ---
Pt awake eating his dinner. Pt's carbs added up. Pt went to BR with aid of a wallker and staff standby assistance. Pt sitting up in bedside recliner.
--- NOTE | 2023-06-14 20:30 | NUR ---
Geodetic Advisor checked blood sugar for HS and it is 265. Pt to get 24 units of Lantus plus 1 unit regular for night time correctional dose. Attempted to give oral medications at 2039 and pt is difficult to wake up enough to swallow HS medications. Will try again later. RR even and unlabored, in NAD.
[2023-06-14] MEDS: ROPINIRole 1mg tablet PO SCH (20:34)
[2023-06-14] MEDS: insulin glargine (Lantus) pen - multi-dose SQ SCH (20:46)
--- NOTE | 2023-06-14 21:53 | NUR ---
Pt up to bathroom with walker and stand by assistance. HS medication given without prompting.
--- NOTE | 2023-06-15 00:08 | NUR ---
Pt up sitting in recliner next to his bed. RR even and pt in no distress. Monitor for safety and falls.
--- NOTE | 2023-06-15 02:00 | NUR ---
Pt asleep, in no distress. Monitor for safety.
--- NOTE | 2023-06-15 04:00 | NUR ---
Patient sleeping, no distress.
--- NOTE | 2023-06-15 05:28 | NUR ---
pt up to bathroom with walker and standby assistance. RR even and unlabored. Pt in no distress. Monitor for safety.
--- NOTE | 2023-06-15 07:05 | NUR ---
Patient walked to the BR and back to his chair to "stretch his legs." No distress observed at this time. Continue to monitor.
[2023-06-15] MEDS: losartan 50mg tablet PO SCH (08:00)
--- NOTE | 2023-06-15 08:16 | NUR ---
Patient eating breakfast. No distress observed. Continue to monitor.
[2023-06-15] MEDS: insulin Lispro (HumaLOG) vial - multi-dose SQ SCH ×3 (08:48→19:05)
[2023-06-15] MEDS: sertraline 50mg tablet PO SCH (08:49)
[2023-06-15] MEDS: olanzapine 10mg tablet PO SCH (08:49)
[2023-06-15] MEDS: gabapentin 400mg capsule PO SCH ×3 (08:49→20:55)
--- NOTE | 2023-06-15 10:04 | NUR ---
Patient sitting in chair dozing. No distress observed. Continue to monitor.
--- NOTE | 2023-06-15 12:24 | NUR ---
Patient sitting up in bed and eating lunch. No distress observed. Patient moved to Level 4 due to BG over 200. Continue to monitor.
--- NOTE | 2023-06-15 13:37 | NUR ---
Patient's visiting with patient. Patient is happy. No distress observed. Continue to monitor.
--- NOTE | 2023-06-15 15:21 | NUR ---
Patient sleeping comfortably in bed. No distress observed. Continue to monitor.
--- NOTE | 2023-06-15 15:52 | NUR ---
RN left a snack of sugar free jello and a slice of cheddar cheese at patient's desk for snack. Patient was on the way to the BR and way eyeing a plate of food and RN asked patient if he wanted snack and patient stated yes. No distress observed. Continue to monitor.
--- NOTE | 2023-06-15 18:09 | NUR ---
Patient is awake and alert. BG is 58. Dinner is not here yet. Will give a juice. Continue to monitor.
--- NOTE | 2023-06-15 19:27 | NUR ---
The patient sat up in his chair and ate almost all of his dinner. He is ambulated to and from the bathroom with the walker and standby assist. He knew he was in the hospital. When asked the year he stated and reminded the year was 2022. He is very pleasant.
--- NOTE | 2023-06-15 20:16 | NUR ---
René gold in EDM - 06/15/23 at 2019 by CLARIBEL The patient disrobing in the middle of the ER overflow and was redirected to get redressed and to stay on his bed.
[2023-06-15] MEDS: ROPINIRole 1mg tablet PO SCH (20:55)
--- NOTE | 2023-06-15 21:00 | NUR ---
The patient up and ambulated to the bathroom. He now appears to be sleeping
[2023-06-15] MEDS: insulin glargine (Lantus) pen - multi-dose SQ SCH (21:11)
--- NOTE | 2023-06-15 23:01 | NUR ---
The patient appears to be sleeping
--- NOTE | 2023-06-16 00:58 | NUR ---
The patient is up and down during the night. Nursing explosive operator supervisor and weigher and charger are aware that a sitter has been ordered.
--- NOTE | 2023-06-16 02:29 | NUR ---
The patient appears to be sleeping.
--- NOTE | 2023-06-16 05:47 | NUR ---
The patient is awake and has been awake the majority of the night
--- NOTE | 2023-06-16 07:04 | NUR ---
Received Pt sleeping in chair w/o distress at the beginning of this shift. Will continue to monitor.
[2023-06-16] MEDS: olanzapine 10mg tablet PO SCH (09:03)
[2023-06-16] MEDS: gabapentin 400mg capsule PO SCH ×3 (09:03→20:20)
[2023-06-16] MEDS: losartan 50mg tablet PO SCH (09:03)
[2023-06-16] MEDS: sertraline 50mg tablet PO SCH (09:03)
[2023-06-16] MEDS: insulin Lispro (HumaLOG) vial - multi-dose SQ SCH ×4 (09:17→20:41)
--- NOTE | 2023-06-16 10:12 | NUR ---
Pt woke and was cooperative with vitals and AM blood glucose check. Pt ate all of his breakfast and was pleasant and cooperative. Pt courteous and was up to bathroom. Am NU=948. Pt received 9 u humalog. Pt took AM meds w/o issue.
--- NOTE | 2023-06-16 11:45 | NUR ---
Pt up to bathroom and sitting in chair at the foot of his bed.
--- NOTE | 2023-06-16 13:45 | NUR ---
Pt napping intermittently. Pt encouraged to stay awake. He remains smiling and freindly. BS before lunch was 218. He ate all his lunch and received 10 units of humalog. Pt has been walking well with FWW and has made laps around EROF with staff 1:1 at his side.
--- NOTE | 2023-06-16 19:09 | NUR ---
The patient is resting on his bed. He is pleasantly confused. He is not exhibiting any agitation.
[2023-06-16] MEDS: ROPINIRole 1mg tablet PO SCH (20:20)
[2023-06-16] MEDS: insulin glargine (Lantus) pen - multi-dose SQ SCH (20:38)
--- NOTE | 2023-06-16 20:48 | NUR ---
The patient up to use the bathroom. PIV discontinued. BS 309 and coverage given
--- NOTE | 2023-06-16 23:09 | NUR ---
The patient is quietly sitting up in a chair by his bed.
--- NOTE | 2023-06-17 00:56 | NUR ---
The patient appears to be sleeping
--- NOTE | 2023-06-17 03:06 | NUR ---
The patient appears to be currently sleeping but is awake frequently
--- NOTE | 2023-06-17 05:01 | NUR ---
The patient appears to be sleeping
--- NOTE | 2023-06-17 05:20 | NUR ---
research laboratory specialist and Nursing city supervisor made aware patient had another fall. Dr. Singh has seen the patient. He currently appears to have skin tear on his right elbow. He was on his way to the bathroom when he tripped and fell on his right side and chest area.
--- NOTE | 2023-06-17 07:26 | NUR ---
RECEIVED REPORT. PT SLEEPING, EVEN RESPS, IN NAD.
[2023-06-17] MEDS: losartan 50mg tablet PO SCH (08:00)
[2023-06-17] MEDS: gabapentin 300mg capsule PO SCH ×3 (08:27→20:00)
[2023-06-17] MEDS: sertraline 50mg tablet PO SCH (08:27)
[2023-06-17] MEDS: insulin Lispro (HumaLOG) vial - multi-dose SQ SCH ×3 (09:03→17:46)
[2023-06-17] MEDS ORDERED: acetaminophen 325mg tablet PO ONE (11:20)
--- NOTE | 2023-06-17 18:48 | NUR ---
Patient's vital signs showing a decrease in BP when he stand up. Sitting BP 119/50 and standing was 77/44. Discussed with Nursing chemical plant operator supervisor high fall risk when he gets up to use the bathroom and she brought an alarm bed for the patient. Mr. Marie was made aware of how the bed works and that when he tried to get up the alarm would go off and alert staff to help him to the bathroom. He verbalized understanding. He is aware that his BP is dropping when he stands up.
[2023-06-17] MEDS: OLANZapine 2.5MG tablet PO SCH (20:00)
[2023-06-17] MEDS: ROPINIRole 1mg tablet PO SCH (20:00)
[2023-06-17] MEDS: insulin glargine (Lantus) pen - multi-dose SQ SCH (20:12)
--- NOTE | 2023-06-17 21:02 | NUR ---
The patient up to use the bathroom with one to one assist with sitter.
--- NOTE | 2023-06-17 22:15 | NUR ---
The patient up to use the bathroom and complaining of pain on his ribs of the left side and is rating it a 7/10. Discussed patient complaint of pain with Daquan FAY and orders received.
[2023-06-17] MEDS: LIDOcaine 5% patch TP SCH (22:20)
[2023-06-17] MEDS: acetaminophen 325mg tablet PO PRN (22:21)
--- NOTE | 2023-06-17 23:02 | NUR ---
The patient appears to be back asleep
--- NOTE | 2023-06-18 00:58 | NUR ---
The patient appears to be sleeping
--- NOTE | 2023-06-18 03:02 | NUR ---
The patient up briefly to sit in his chair after going to the bathroom but is now back in bed
--- NOTE | 2023-06-18 05:10 | NUR ---
The patient appears to be sleeping
--- NOTE | 2023-06-18 06:24 | NUR ---
Patient sitting in his recliner. Was sitting up but now his head is hanging down as he is sleeping. No distress observed. Nonlabored respirations. Patient has a sitter as he is a fall risk. Continue to monitor.
--- NOTE | 2023-06-18 07:53 | NUR ---
Patient drinking coffee and chatting with his sitter. No distress observed. Continue to monitor.
[2023-06-18] MEDS: losartan 50mg tablet PO SCH (08:00)
--- NOTE | 2023-06-18 08:22 | NUR ---
Patient eating breakfast. No distress observed. Continue to monitor.
[2023-06-18] MEDS: sertraline 50mg tablet PO SCH (08:47)
[2023-06-18] MEDS: gabapentin 300mg capsule PO SCH ×3 (08:47→21:11)
[2023-06-18] MEDS: LIDOcaine 5% patch TP SCH (08:48)
[2023-06-18] MEDS: insulin Lispro (HumaLOG) vial - multi-dose SQ SCH ×3 (09:01→18:20)
--- NOTE | 2023-06-18 10:16 | NUR ---
Patient taking a nap in his bed. No distress observed. Continue to monitor.
--- NOTE | 2023-06-18 12:19 | NUR ---
Patient eating lunch. No distress observed. Continue to monitor.
--- NOTE | 2023-06-18 14:14 | NUR ---
Patient took a little walk around the unit with his sitter. No distress observed. Continue to monitor.
--- NOTE | 2023-06-18 16:34 | NUR ---
Patient looking at his tablet and watching T.V. No distress observed. Continue to monitor.
--- NOTE | 2023-06-18 17:27 | NUR ---
Patient eating, and watching football. Patient is enjoying himself. Continue to monitor.
--- NOTE | 2023-06-18 18:56 | NUR ---
pt has been moved to er room 14 in a hospital bed. bed alarm is activiated. tv has been placed in the room. pt is laying in bed calmly watching tv.
[2023-06-18] MEDS: insulin glargine (Lantus) pen - multi-dose SQ SCH (21:00)
[2023-06-18] MEDS: OLANZapine 2.5MG tablet PO SCH (21:11)
[2023-06-18] MEDS: ROPINIRole 1mg tablet PO SCH (21:11)
--- NOTE | 2023-06-18 22:27 | NUR ---
patient appears to be asleep.
--- NOTE | 2023-06-19 04:54 | NUR ---
I have reviewed and agree with all interventions, assessments performed and documented by DENAE Cooper
[2023-06-19] MEDS: LIDOcaine 5% patch TP SCH (08:00)
[2023-06-19] MEDS: gabapentin 300mg capsule PO SCH ×3 (09:05→21:48)
[2023-06-19] MEDS: sertraline 50mg tablet PO SCH (09:05)
[2023-06-19] MEDS: losartan 50mg tablet PO SCH (09:22)
[2023-06-19] MEDS: insulin Lispro (HumaLOG) vial - multi-dose SQ SCH ×3 (09:59→17:53)
--- NOTE | 2023-06-19 10:10 | NUR ---
I AGREE WITH THE ASSESSMENT PER LUIZ JAY LVN
[2023-06-19] MEDS: DEXTROSE 15 GM of carb/4 tabs (each vial/BOTTLE has 4 tablets) PO PRN (15:46)
--- NOTE | 2023-06-19 19:34 | NUR ---
I have reviewed & agree with assessments completed by DENAE Cooper.
[2023-06-19] MEDS: insulin glargine (Lantus) pen - multi-dose SQ SCH (21:00)
[2023-06-19] MEDS: OLANZapine 2.5MG tablet PO SCH (21:48)
[2023-06-19] MEDS: ROPINIRole 1mg tablet PO SCH (21:48)
--- NOTE | 2023-06-20 06:20 | NUR ---
JOSELYN Hubbard and DENAE Kapoor walked patient from Main ED to ED OF bed 23.
[2023-06-20] MEDS: LIDOcaine 5% patch TP SCH (08:00)
[2023-06-20] MEDS: losartan 50mg tablet PO SCH (08:00)
--- NOTE | 2023-06-20 08:19 | NUR ---
Patient eating breakfast. No distress observed. Continue to monitor.
[2023-06-20] MEDS: sertraline 50mg tablet PO SCH (08:27)
[2023-06-20] MEDS: gabapentin 300mg capsule PO SCH ×3 (08:27→20:40)
[2023-06-20] MEDS: insulin Lispro (HumaLOG) vial - multi-dose SQ SCH ×2 (09:26→13:07)
--- NOTE | 2023-06-20 10:11 | NUR ---
Patient watching TBrigid RN unable to get [facility] [employer] channel due to needing a password. Continue to monitor.
--- NOTE | 2023-06-20 11:35 | NUR ---
Shower given by Concetta Betancourt and JOSELYN Hubbard. Patient initially got dizzy in the shower and sat in the shower chair. Patient recovered and got dressed with assistance and walked with his walker back to ED OF. Patient states he is feeling better. Continue to monitor.
--- NOTE | 2023-06-20 12:55 | NUR ---
Patient came out of the BR and stated he was dizzy. Patient walked back to his room. Continue to monitor.
--- NOTE | 2023-06-20 15:09 | NUR ---
Patient is looking at his IPad. No distress observed. continue to monitor.
--- NOTE | 2023-06-20 16:58 | NUR ---
Patient just awoke from a nap and is watching football. No distress observed. Patient is also eating a snack of cheese and yogurt. Continue to monitor.
--- NOTE | 2023-06-20 18:03 | NUR ---
Patient sitting in chair and watching T.V. No distress observed. Continue to monitor.
--- NOTE | 2023-06-20 19:10 | NUR ---
Patient is angry and walking around looking at places where to go. Patient is very frustrated on being here. RN explained that the [employer] Cage Manager is looking for placement for him. He felt they were not doing enough. Continue to monitor.
[2023-06-20] MEDS: ROPINIRole 1mg tablet PO SCH (20:40)
[2023-06-20] MEDS: OLANZapine 2.5MG tablet PO SCH (20:40)
[2023-06-20] MEDS: insulin glargine (Lantus) pen - multi-dose SQ SCH (20:41)
--- NOTE | 2023-06-20 20:47 | NUR ---
Patient awake and sitting up in his recliner. No distress observed. Continue to monitor.
--- NOTE | 2023-06-20 20:55 | NUR ---
RN checked patient's blood glucose. Patient was attempting to sleep. BG is at 276. RN afraid patient will drop too low and did not give patient any insulin as patient won't eat for another 11 hours. Patient dropped to 79 before dinner. No distress noted at this time. Continue to monitor.
--- NOTE | 2023-06-20 22:39 | NUR ---
Patient sitting up in recliner awake. Patient states he is not ready to lay in the bed. No distress observed. Continue to monitor.
--- NOTE | 2023-06-21 00:44 | NUR ---
Patient sitting up in bed and eating a snack. No distress observed. Continue to monitor.
--- NOTE | 2023-06-21 01:37 | NUR ---
Patient up and turned the T.V. loud. RN advised patient that it is 1:30 in the morning and other patients want to sleep. Patient can't remember that it is very early in the morning and RN and Tech has told him several times. Patient and Tech remaking his bed and getting warm blankets. Continue to monitor.
--- NOTE | 2023-06-21 03:43 | NUR ---
Patient just got out of bed and walked up to the nurses station and then back to bed. Patient has not slept. Continue to monitor.
--- NOTE | 2023-06-21 05:00 | NUR ---
Patient got up from bed and walked in front of bed 24, pulled down his pants and started urinating on the floor. Patient appeared delirious. Patient then was directed to the BR. RN cleaned the floor as the Tech had gone to the main ED. Patient attempted to sit in a chair at the nurses station with wheels and RN redirected patient. Patient went to his room and was standing up not steady on his feet. RN moved her chair to sit with patient. Patient wanted to walk around but RN did not feel he was safe. Patient poured coffee on floor and RN. Patient grabbed RN's right wrist and twisted it. THe TEch was in the Main and RN had to use her phone to call ED to call Security for help. Skylar RN and Security arrived and attempted to talk patient down. Patient was still cussing and threatening staff. Patient was placed in [address] Earl saw patient.
[2023-06-21] MEDS ORDERED: haloperidol lactate 5mg/ml inj ONE (05:10)
[2023-06-21] MEDS ORDERED: LORazepam 2 mg/ml vial ONE (05:11)
[2023-06-21] MEDS ORDERED: haloperidol lactate 5mg/ml inj IM ONE ×2 (05:20→08:05)
[2023-06-21] MEDS ORDERED: LORazepam 2 mg/ml vial IM ONE (05:20)
--- NOTE | 2023-06-21 05:30 | NUR ---
2 Point restraints placed after patient threatening "to nate Abdi's (lead instructor/flight attendant's) ass.
--- NOTE | 2023-06-21 06:35 | NUR ---
Patient was calm and cooperative and RN removed restraints. RN gave patient water to drink. Continue to monitor.
--- NOTE | 2023-06-21 06:56 | NUR ---
report from Margaret elder pt was given haldol and ativan prior to coming on pt was in 1 point restraint that was removed when i arrived pt is a type 1 diabetic and a fall risk
[2023-06-21] MEDS ORDERED: diphenhydrAMINE 25mg capsule PO ONE (08:05)
[2023-06-21] MEDS: losartan 50mg tablet PO SCH (08:26)
[2023-06-21] MEDS: gabapentin 300mg capsule PO SCH ×3 (08:26→23:41)
[2023-06-21] MEDS: sertraline 50mg tablet PO SCH (08:27)
--- NOTE | 2023-06-21 09:08 | NUR ---
For the past 2 hours pt has been getting in and out of bed. He is clearly not stable on his feet, getting more aggitated with staff and not following commmands, He did urinate several time and did have a bowel movement. Security has been called to help redirect pt to bed and not fall.
[2023-06-21] MEDS: insulin Lispro (HumaLOG) vial - multi-dose SQ SCH ×2 (09:27→18:47)
--- NOTE | 2023-06-21 10:10 | NUR ---
pt getting frustrated even after medications given pt is restless and currently in soft restraints approved by shelley tan nurse
[2023-06-21] MEDS: LIDOcaine 5% patch TP SCH (10:42)
--- NOTE | 2023-06-21 12:54 | NUR ---
pt is currently sleeping with no signs of distress, pt has been urinating alot today
--- NOTE | 2023-06-21 13:45 | NUR ---
did not want to wake patient for vitals as he is peacefully resting and did not sleep all night and has been having a difficult time today with remaining calm
--- NOTE | 2023-06-21 14:37 | NUR ---
pt is resting peacefully
--- NOTE | 2023-06-21 14:44 | NUR ---
have not checked bs due to patient finally resting and he has not eaten anything
--- NOTE | 2023-06-21 15:55 | NUR ---
pt bs is 50 at this time so i fed pt some yogurt while in bed
--- NOTE | 2023-06-21 16:05 | NUR ---
pt soft wrist restaints were removed around 154 when i woke him up to eat a yogurt pt fell getting out of bed at approx 1600, pt is now sleeping again
--- NOTE | 2023-06-21 16:53 | NUR ---
held pt insulin until recheck due to blood sugar being low and pt not eating due to sleeping
--- NOTE | 2023-06-21 18:24 | NUR ---
pt is up and eating and patient fell approx 1600 and vs
--- NOTE | 2023-06-21 18:30 | NUR ---
Patient is resting up in chair at this time. Dayshift CERTIFIED ALCOHOL AND DRUG COUNSELOR and RN to administer his dinner insulin. Received 2 units.
--- NOTE | 2023-06-21 18:43 | NUR ---
PTS CALLED TO CHECK ON PT. INFORMED HER PT IS CURRENTLY SLEEPING. CHRIS WILL COME BY TOMORROW AT 2PM
--- NOTE | 2023-06-21 19:15 | NUR ---
Assisted patient into bed, changed brief and place non-skid socks on patient. Currently sleeping in bed at this time. Will continue to monitor.
--- NOTE | 2023-06-21 21:00 | NUR ---
Patient resting well. No s/sx of distress noted. Will continue to monitor.
--- NOTE | 2023-06-21 22:17 | NUR ---
Patient continues to sleep well. Appears to be comfortable while resting on right side. No s/sx of distress noted. Rise/fall of chest noted. Will continue to monitor.
--- NOTE | 2023-06-21 23:35 | NUR ---
Hayley RN arrived to assist this RN with Lantus protocol. Upon her assessment of patient noted AMS and was not at his baseline. Notified ER Physician. Orders received and interventions intiated. Will continue to monitor.
[2023-06-21] MEDS: ROPINIRole 1mg tablet PO SCH (23:42)
[2023-06-21] MEDS: OLANZapine 2.5MG tablet PO SCH (23:42)
[2023-06-21] MEDS: insulin glargine (Lantus) pen - multi-dose SQ SCH (23:50)
--- NOTE | 2023-06-22 | NUR ---
Patient transferred to CT at this time.
--- NOTE | 2023-06-22 00:40 | NUR ---
Demarcus Robles RN started #20 gauge IV. Placed to right wrist. Tolerated well. Started NS 0.9% at TKO per MD orders. Labs and blood cultures obtained at this time.
[2023-06-22] MEDS ORDERED: normal saline 1000ml 1,000 ML IV SCH (00:45)
[2023-06-22 01:09] LABS: MEAN CORPUSCULAR HEMOGLOBIN 29.2 PG (27.0-31.0); MEAN PLATELET VOLUME 9.2 FL (7.4-10.4)
[2023-06-22 01:10] LABS: BASOPHILS # (AUTO) 0.1 X10'3 (0-0.2); BASOPHILS % (AUTO) 0.4 % (0-1); EOSINOPHILS # (AUTO) 0.1 X10'3 (0-0.9); EOSINOPHILS % (AUTO) 0.6 % (0-6); HEMATOCRIT 35.1 % (42.0-52.0); HEMOGLOBIN 11.8 g/dl (14.0-17.9); LYMPHOCYTES # (AUTO) 2.5 X10'3 (1.1-4.8); LYMPHOCYTES % (AUTO) 19.4 % (21-51); MEAN CORPUSCULAR HGB CONC 33.6 g/dL (33.0-36.5); MEAN CORPUSCULAR VOLUME 87.1 FL (78-98); MONOCYTES # (AUTO) 0.7 X10'3 (0-0.9); MONOCYTES % (AUTO) 5.3 % (2-12); NEUTROPHILS # (AUTO) 9.6 X10'3 (1.8-7.7); NEUTROPHILS % (AUTO) 74.3 % (42-75); PLATELET COUNT 326 X10'3 (140-440); RED BLOOD COUNT 4.04 X10'6 (4.70-6.10); RED CELL DISTRIBUTION WIDTH 13.8 % (11.5-14.5)
--- NOTE | 2023-06-22 01:10 | NUR ---
Collected UA via straight cath. CXR here to do single view. Patient tolerated well.
[2023-06-22 01:20] LABS: BILIRUBIN,URINE NEGATIVE (Neg); CLARITY,URINE CLEAR (Clear); COLOR,URINE YELLOW (Yellow); GLUCOSE, URINE 250 mg/dl (Neg); KETONES,URINE NEGATIVE (Neg); LEUKOCYTE ESTERASE ,URINE NEGATIVE (Neg); NITRITES, URINE NEGATIVE (Neg); OCCULT BLOOD,URINE NEGATIVE (Neg); PROTEIN,URINE NEGATIVE (Neg); UROBILINOGEN,URINE 0.2 E.U/dL (0.2-1.0)
[2023-06-22 01:24] LABS: ALANINE AMINOTRANSFERASE 20 U/L (12-78); ALBUMIN 2.5 G/DL (3.4-5.0); ALBUMIN/GLOBULIN RATIO 0.6 (1.1-1.5); ALKALINE PHOSPHATASE 70 IU/L (46-116); ANION GAP 7 (8-16); ASPARTATE AMINO TRANSFERASE 21 U/L (10-37); BILIRUBIN,TOTAL 0.4 MG/DL (0.1-1.0); BLOOD UREA NITROGEN 16 MG/DL (7-18); CALCIUM 8.7 MG/DL (8.5-10.1); CHLORIDE 104 MMOL/L (99-107); CREATININE 0.94 MG/DL (0.60-1.10); GLUCOSE 211 MG/DL (70-104); MAGNESIUM 1.8 MG/DL (1.5-2.4); POTASSIUM 3.8 MMOL/L (3.5-5.1); SODIUM 139 MMOL/L (135-145); TOTAL CARBON DIOXIDE 27.8 MMOL/L (24-32); TOTAL PROTEIN 6.4 G/DL (6.4-8.2); eCRCL 76 ML/MIN; eGFR 77 ML/MIN
[2023-06-22 01:29] LABS: UA COLLECTION TYPE STRAIGHT CATH
[2023-06-22] MEDS ORDERED: CefTRIAXone 2gm/D5W 50ml BAG 50 ML IV ONE (01:45)
--- NOTE | 2023-06-22 02:00 | NUR ---
Prosper held this evening per MD orders. Hospitalist to see patient. Pending admission to floor.
--- NOTE | 2023-06-22 03:45 | NUR ---
Patient receivd IV Rocephin x 1 this am. VSS. Continues to sleep. IVF's running at 50 ml/hr. Will continue to monitor.
--- NOTE | 2023-06-22 05:15 | NUR ---
Patient woke up. Noted to be be a positive change in mental status in which patient is alert and oriented, pleasant, calm and cooperative. Assisted up to W/C to use BR. Walked into BR then walked right back to bed without using it. Provided warm blankets and patient went back to sleep. IVF's continue at 50 ml/hr. Rocephin 2 gm IVPB x 1 complete. Will continue to monitor.
--- NOTE | 2023-06-22 06:45 | NUR ---
Patient up and down and moved to recliner. No distress observed. Continue to monitor.
--- NOTE | 2023-06-22 08:13 | NUR ---
Patient eating breakfast. No distress observed. Continue to monitor.
[2023-06-22] MEDS: insulin Lispro (HumaLOG) vial - multi-dose SQ SCH ×3 (08:59→18:10)
[2023-06-22] MEDS: LIDOcaine 5% patch TP SCH (09:00)
[2023-06-22] MEDS: gabapentin 300mg capsule PO SCH ×3 (09:10→21:05)
[2023-06-22] MEDS: losartan 50mg tablet PO SCH (09:11)
[2023-06-22] MEDS: sertraline 50mg tablet PO SCH (09:11)
--- NOTE | 2023-06-22 10:10 | NUR ---
Patient sitting up in his recliner and nods off now and then. No distress observed. Continue to monitor.
--- NOTE | 2023-06-22 12:08 | NUR ---
Patient eating lunch. No distress observed. Continue to monitor.
--- NOTE | 2023-06-22 14:50 | NUR ---
visiting with patient. No distress observed. Continue to monitor.
--- NOTE | 2023-06-22 16:09 | NUR ---
Patient's left a few minutes ago. Patient appears to be looking at his Ipad in his recliner. No distress observed. Continue to monitor.
--- NOTE | 2023-06-22 17:30 | NUR ---
Patient eating dinner. No distress oberved. Continue to monitor.
--- NOTE | 2023-06-22 19:35 | NUR ---
Patient eating a snack. No distress observed. Continue to monitor.
[2023-06-22] MEDS: insulin glargine (Lantus) pen - multi-dose SQ SCH (21:01)
[2023-06-22] MEDS: ROPINIRole 1mg tablet PO SCH (21:05)
[2023-06-22] MEDS: cephalexin 250mg capsule PO SCH (21:05)
[2023-06-22] MEDS: OLANZapine 2.5MG tablet PO SCH (21:05)
--- NOTE | 2023-06-22 21:38 | NUR ---
Patient had another snack. Patient is now laying down. No distress observed. Continue to monitor.
--- NOTE | 2023-06-22 23:11 | NUR ---
Keflex for infection to patient's forefinger. Patient wants a needle to dig in his finger. RN explains she doesn't have a needle for his finger. Continue to monitor.
--- NOTE | 2023-06-23 00:58 | NUR ---
Received report from JOSELYN Gallegos. Pt is awake and ambulating with his walker. OPt in no distress. Monitor for safety.
[2023-06-23] MEDS ORDERED: zolpidem 5mg tablet PO ONE (01:35)
--- NOTE | 2023-06-23 01:46 | NUR ---
Pt awake and pacing the unit. Pt given Ambien 5mg po. Pt lying down at this time. Monitor for falls.
--- NOTE | 2023-06-23 03:57 | NUR ---
Pt asleep in supine position. No respitory issues. Pt in NAD. Monitor for safety.
--- NOTE | 2023-06-23 04:45 | NUR ---
Pt up and ambulated with walker. Staff standby for assist. Pt's gait steady. Monitor for safety.
--- NOTE | 2023-06-23 05:38 | NUR ---
Pt is sleeping on her left side. RR even and unlabored, in NAD. Monitor for safety.
--- NOTE | 2023-06-23 06:30 | NUR ---
Received pt. sleeping, head of bed elevated, rr are even and unlabored.
[2023-06-23] MEDS: LIDOcaine 5% patch TP SCH ×2 (08:00→09:01)
--- NOTE | 2023-06-23 08:30 | NUR ---
1:1 was completed with patient at beside, he presents as disoriented and is A&O X2 to name and place only. When questioned what season it is he stated, "Spring," and when questioned why he is currently here, pt. stated, "I had trouble managing my insulin." Pt. is cooperative and pleasant, he denies any S/I, A/V/VILLA, and no delusional statements were made. Pt. has dressings present on his bilateral wrists from previous skin tears, these were removed and skin was evaluated. Pt's right wrist appears to be healed so dressing was not replaced, however his left wrist still has a small open area so was cleaned with normal saline and a new dressing was applied. Pt. tolerated this well. Pt. is also complaining of some pain in his right pointer finger and the area appears to be slightly swollen and warm to the touch. This was endorsed to Dr. Adams who will evaluate area. Pt. refused his ordered Lidoderm Patch.
[2023-06-23] MEDS: losartan 50mg tablet PO SCH (09:00)
[2023-06-23] MEDS: gabapentin 300mg capsule PO SCH ×3 (09:00→21:48)
[2023-06-23] MEDS: cephalexin 250mg capsule PO SCH ×3 (09:00→21:48)
[2023-06-23] MEDS: sertraline 50mg tablet PO SCH (09:01)
[2023-06-23] MEDS: insulin Lispro (HumaLOG) vial - multi-dose SQ SCH ×3 (09:06→18:52)
--- NOTE | 2023-06-23 10:30 | NUR ---
Pt. is laying in bed napping at this time, no s/s of distress noted.
--- NOTE | 2023-06-23 12:22 | NUR ---
Pt.is sitting up in a chair at bedside. Dr. Adams over to evaluate pt's right index finger which appears slightly swollen, reddened, and warm to the touch. Dr. Adams lanced area and drained purulent fluid, a clean dressing was placed and will continue to monitor closely. Pt. tolerated procedure well. Pt. is currently on Keflex for an infection, and per Dr. Adams does not need any additional antibiotics at this time.
--- NOTE | 2023-06-23 14:56 | NUR ---
Pt. is laying in bed sleeping at this time, rise and fall of chest noted.
--- NOTE | 2023-06-23 16:15 | NUR ---
Pt's is here visiting with him at this time.
--- NOTE | 2023-06-23 17:46 | NUR ---
Pt. is sitting up in a chair at bedside eating dinner at this time.
--- NOTE | 2023-06-23 18:40 | NUR ---
Pt. transported to the main ER.
[2023-06-23] MEDS: ROPINIRole 1mg tablet PO SCH (21:48)
[2023-06-23] MEDS: OLANZapine 2.5MG tablet PO SCH (21:49)
[2023-06-23] MEDS: insulin glargine (Lantus) pen - multi-dose SQ SCH (21:50)
--- NOTE | 2023-06-24 07:55 | NUR ---
Patient eating breakfast meal. Denies needs.
[2023-06-24] MEDS: gabapentin 300mg capsule PO SCH ×3 (08:22→20:26)
[2023-06-24] MEDS: sertraline 50mg tablet PO SCH (08:23)
[2023-06-24] MEDS: cephalexin 250mg capsule PO SCH ×3 (08:23→20:26)
[2023-06-24] MEDS: losartan 50mg tablet PO SCH (08:25)
--- NOTE | 2023-06-24 09:12 | NUR ---
Patient appears to be asleep. RR even and unlabored. No s/sx of distress
[2023-06-24] MEDS: LIDOcaine 5% patch TP SCH (09:21)
[2023-06-24] MEDS: insulin Lispro (HumaLOG) vial - multi-dose SQ SCH ×2 (09:40→18:13)
--- NOTE | 2023-06-24 18:30 | NUR ---
Patient awake and sitting in bedside chair. Pleasant and cooperative.
[2023-06-24] MEDS: ROPINIRole 1mg tablet PO SCH (20:26)
[2023-06-24] MEDS: OLANZapine 2.5MG tablet PO SCH (20:26)
[2023-06-24] MEDS: insulin glargine (Lantus) pen - multi-dose SQ SCH (20:28)
--- NOTE | 2023-06-24 20:30 | NUR ---
Patient pleasant and cooperative with medication. HS BS 95; Lantus was increased to 17units this shift d/t elevated AM BS (263). Patient sitting up in bedside chair eating a snack and watching TV.
[2023-06-24] MEDS ORDERED: zolpidem 5mg tablet PO ONE (22:20)
--- NOTE | 2023-06-24 22:30 | NUR ---
Patient restless and reported difficulty sleeping; one time order for Ambien provided.
--- NOTE | 2023-06-25 00:18 | NUR ---
Patient remains restless and now presenting irritable. Patient's gait is unsteady at the time but resistive to staff assist and encouragement to remain seated or laying. Patient reports he is leaving before breakfast. BS 156.
[2023-06-25] MEDS ORDERED: haloperidol 5mg tablet PO ONE (00:55)
--- NOTE | 2023-06-25 02:00 | NUR ---
Patient received one time order Haldol 5mg PO for agitation at 0100; patient appears less irritable but remains restless at this time.
--- NOTE | 2023-06-25 05:13 | NUR ---
Patient woke up to use the restroom; currently laying in bed quietly.
--- NOTE | 2023-06-25 06:30 | NUR ---
Pt. asleep on Lt. side, no s/sx of distress, chest rise and fall observed
[2023-06-25] MEDS: sertraline 50mg tablet PO SCH (08:18)
[2023-06-25] MEDS: losartan 50mg tablet PO SCH (08:18)
[2023-06-25] MEDS: cephalexin 250mg capsule PO SCH ×3 (08:18→21:00)
[2023-06-25] MEDS: gabapentin 300mg capsule PO SCH ×3 (08:18→22:25)
--- NOTE | 2023-06-25 08:30 | NUR ---
Pt. awake and eating breakfast, prev FBS completed 167,no s/sx of distress
[2023-06-25] MEDS: insulin Lispro (HumaLOG) vial - multi-dose SQ SCH ×3 (08:51→18:34)
[2023-06-25] MEDS: LIDOcaine 5% patch TP SCH (09:24)
--- NOTE | 2023-06-25 10:30 | NUR ---
Pt. asleep, no s/sx of distress noted
--- NOTE | 2023-06-25 12:30 | NUR ---
Pt. awake and eating lunch, prev. BS 238
[2023-06-25 13:12] LABS: BASOPHILS # (AUTO) 0.1 X10'3 (0-0.2); BASOPHILS % (AUTO) 1.2 % (0-1); EOSINOPHILS # (AUTO) 0.5 X10'3 (0-0.9); EOSINOPHILS % (AUTO) 4.6 % (0-6); HEMATOCRIT 36.3 % (42.0-52.0); HEMOGLOBIN 11.9 g/dl (14.0-17.9); LYMPHOCYTES # (AUTO) 2.6 X10'3 (1.1-4.8); LYMPHOCYTES % (AUTO) 25.7 % (21-51); MEAN CORPUSCULAR HEMOGLOBIN 28.8 PG (27.0-31.0); MEAN CORPUSCULAR HGB CONC 32.7 g/dL (33.0-36.5); MEAN CORPUSCULAR VOLUME 88.1 FL (78-98); MEAN PLATELET VOLUME 9.6 FL (7.4-10.4); MONOCYTES # (AUTO) 0.8 X10'3 (0-0.9); MONOCYTES % (AUTO) 7.4 % (2-12); NEUTROPHILS # (AUTO) 6.2 X10'3 (1.8-7.7); NEUTROPHILS % (AUTO) 61.1 % (42-75); PLATELET COUNT 361 X10'3 (140-440); RED BLOOD COUNT 4.12 X10'6 (4.70-6.10); RED CELL DISTRIBUTION WIDTH 13.8 % (11.5-14.5); WHITE BLOOD COUNT 10.2 X10'3 (4.5-11.0)
[2023-06-25 13:34] LABS: ALANINE AMINOTRANSFERASE 17 U/L (12-78); ALBUMIN 2.6 G/DL (3.4-5.0); ALBUMIN/GLOBULIN RATIO 0.6 (1.1-1.5); ALKALINE PHOSPHATASE 70 IU/L (46-116); ANION GAP 6 (8-16); ASPARTATE AMINO TRANSFERASE 15 U/L (10-37); BILIRUBIN,TOTAL 0.3 MG/DL (0.1-1.0); BLOOD UREA NITROGEN 17 MG/DL (7-18); BUN/CREATININE RATIO 20.2 (10.0-20.0); CHLORIDE 103 MMOL/L (99-107); CREATININE 0.84 MG/DL (0.60-1.10); GLUCOSE 254 MG/DL (70-104); POTASSIUM 4.3 MMOL/L (3.5-5.1); SODIUM 138 MMOL/L (135-145); TOTAL CARBON DIOXIDE 28.7 MMOL/L (24-32); TOTAL PROTEIN 6.7 G/DL (6.4-8.2); eCRCL 85 ML/MIN; eGFR 88 ML/MIN
--- NOTE | 2023-06-25 14:30 | NUR ---
Pt. sitting on his bed and visiting with his . approached this scenario writer requesting catalytic case operator or an additional SW contact.
--- NOTE | 2023-06-25 15:21 | NUR ---
Pt. asleep, no s/sx of distress, resting
--- NOTE | 2023-06-25 16:37 | NUR ---
Pt. awake changed his scrubs, new depend and hygiene wipes provided. No c/o pain, no distress noted, ambulates well with FWW.
--- NOTE | 2023-06-25 17:40 | NUR ---
Pt. BS @0230 was 74 which decreases pt. to a level 4
--- NOTE | 2023-06-25 18:30 | NUR ---
Patient was napping at shift change. No distress.
--- NOTE | 2023-06-25 20:42 | NUR ---
Patient is up to bedside recliner with assist. No distress.
[2023-06-25] MEDS: insulin glargine (Lantus) pen - multi-dose SQ SCH (21:45)
[2023-06-25] MEDS ORDERED: traZODone 50mg tablet PO ONE (22:05)
[2023-06-25] MEDS: OLANZapine 2.5MG tablet PO SCH (22:25)
[2023-06-25] MEDS: ROPINIRole 1mg tablet PO SCH (22:26)
--- NOTE | 2023-06-25 22:52 | NUR ---
Patient complies with night medications. He converses with this chart writer about work and travels. He then returns to sleep.
--- NOTE | 2023-06-26 00:59 | NUR ---
Patient is up to bathroom to void. No distress. He returns to bed and sleep.
--- NOTE | 2023-06-26 05:21 | NUR ---
Patient has slept well this night compaired to hernandez nights. He responded well to Trazadone 100 mg HS. The patient is sleeping quietly.
--- NOTE | 2023-06-26 07:23 | NUR ---
Patient is sleeping in bed with blanket over his head. Respirations are even and nonlabored.
--- NOTE | 2023-06-26 07:41 | NUR ---
Patient awake walking the unit. Patient is up to the bathroom. No S/S of distress noted. Patient made a joke with RN and then laughed.
--- NOTE | 2023-06-26 08:20 | NUR ---
Patient sitting in his chair eating breakfast. Patient drinking coffee, appears to be in a good mood. Utilizing FWW while walking.
[2023-06-26] MEDS: sertraline 50mg tablet PO SCH (08:27)
[2023-06-26] MEDS: cephalexin 250mg capsule PO SCH ×3 (08:27→21:34)
[2023-06-26] MEDS: gabapentin 300mg capsule PO SCH ×3 (08:27→21:34)
[2023-06-26] MEDS: losartan 50mg tablet PO SCH (08:28)
[2023-06-26] MEDS: LIDOcaine 5% patch TP SCH (08:28)
[2023-06-26] MEDS: insulin Lispro (HumaLOG) vial - multi-dose SQ SCH (08:55)
--- NOTE | 2023-06-26 09:18 | NUR ---
Patient is sleeping at this time. No S/S of distress noted.
--- NOTE | 2023-06-26 12:23 | NUR ---
Patient is eating his lunch. No complaints at this time.
--- NOTE | 2023-06-26 13:50 | NUR ---
Patient sitting up in his chair, napping.
--- NOTE | 2023-06-26 16:03 | NUR ---
at bedside visiting. is happy to see her.
--- NOTE | 2023-06-26 17:24 | NUR ---
Patient's is still visiting, son arrived to visit as well. Patient has been in a good mood today. He remembered that he takes Neurontin at [facility]. Patient's brought patient dinner with high carbs, insulin given to cover carbs.
--- NOTE | 2023-06-26 17:38 | NUR ---
Visitors left. Patient is playing on his computer.
--- NOTE | 2023-06-26 18:47 | NUR ---
Patient is sleeping low fowlers position in bed. No distress, good color.
[2023-06-26] MEDS: traZODone 50mg tablet PO SCH (21:33)
[2023-06-26] MEDS: OLANZapine 2.5MG tablet PO SCH (21:34)
[2023-06-26] MEDS: ROPINIRole 1mg tablet PO SCH (21:34)
[2023-06-26] MEDS: insulin glargine (Lantus) pen - multi-dose SQ SCH (22:02)
--- NOTE | 2023-06-26 22:36 | NUR ---
Patient awoke for night medications. Patient is cooperative and friendly. He complied with medications and returned to sleep.
--- NOTE | 2023-06-27 04:16 | NUR ---
Patient awoke, ambulated to bathroom to void. He then returned to his bedside chair. He rests quietly.
[2023-06-27] MEDS: LIDOcaine 5% patch TP SCH (08:00)
[2023-06-27] MEDS: sertraline 50mg tablet PO SCH (08:39)
[2023-06-27] MEDS: losartan 50mg tablet PO SCH (08:42)
[2023-06-27] MEDS: cephalexin 250mg capsule PO SCH ×3 (08:42→21:27)
[2023-06-27] MEDS: gabapentin 300mg capsule PO SCH ×3 (08:45→21:27)
[2023-06-27] MEDS: insulin Lispro (HumaLOG) vial - multi-dose SQ SCH ×2 (09:39→18:32)
--- NOTE | 2023-06-27 13:13 | NUR ---
PT blood sugar 62 mg/DL MOLD BURNER notified
--- NOTE | 2023-06-27 13:15 | NUR ---
assumed care of pt from Antwon PHILIPPE, pt is sitting on chair, eating lunch, pt is a/o x3, GCS 15, resp even and unlabored, skin p/w/d.
--- NOTE | 2023-06-27 17:37 | NUR ---
pt eating dinner
--- NOTE | 2023-06-27 18:25 | NUR ---
PT AMB WITH STEADY GAIT, USING WALKER TO OVERFLOW, ROOM 22. REPORT TO RUPAL ALVES
--- NOTE | 2023-06-27 20:27 | NUR ---
Pt ambulated to unit at change of shift. Gait steady. Pleasant and cooperative answers questions appropriately. Ambulated to BR independantly using FWW.
[2023-06-27] MEDS: insulin glargine (Lantus) pen - multi-dose SQ SCH (21:24)
[2023-06-27] MEDS: traZODone 50mg tablet PO SCH (21:27)
[2023-06-27] MEDS: ROPINIRole 1mg tablet PO SCH (21:27)
[2023-06-27] MEDS: OLANZapine 2.5MG tablet PO SCH (21:27)
--- NOTE | 2023-06-27 21:50 | NUR ---
HS BS 209, given 20 units Lantus based on am BS of 368. Pt ate snack, sleeps intermittently between trips to the BR using FWW. At times carries FWW, gait is steady.
--- NOTE | 2023-06-28 00:43 | NUR ---
Pt up several times to BR sleeps for short periods in between. Sitting at bedside at this time.
--- NOTE | 2023-06-28 03:42 | NUR ---
Pt sitting in chair at bedside.
--- NOTE | 2023-06-28 06:30 | NUR ---
Pt quietly lying in bed awake.
--- NOTE | 2023-06-28 07:59 | NUR ---
FS BG AC breakfast was 254, however, pt had already had a cup of coffee with creamer and sweet and low.
--- NOTE | 2023-06-28 07:59 | NUR ---
Pt ambulated to the bathroom.
[2023-06-28] MEDS: LIDOcaine 5% patch TP SCH ×3 (08:00→08:57)
--- NOTE | 2023-06-28 08:45 | NUR ---
LATE NOTE FOR 0845 06/28/23: RECD CALL FROM SPOUSE INQUIRING TO PLACEMENT FOR PATIENT. INFORMED SPOUSE THAT REFERRALS HAVE BEEN SENT OUT OF THE AREA NO LOCAL FACILITIES HAVE ACCEPTED PATIENT. SPOUSE DOES NOT WANT PATIENT TO GO OUT OF THE AREA. SHE WOULD CONSIDER [facility] [place] ARE[place] BUT IS UNSURE ABOUT ANYTHING FARTHER AWAY. SPOUSE STATES THAT PATIENT HAS INCOME OF $2500/MONTH. DISCUSSED THAT WE WILL CONTINUE TO SEND REFERRALS BUT LIKELY PATIENT WOULD NEED TO GO OUT OF AREA OR HOME WITH HER. SPOKE WITH ENGINEERING PROGRAMMER WHO STATED THAT SHE WILL BE GOING TO SPEAK WITH PATIENT AND SPOUSE TODAY ABOUT RETURNING HOME. WILL ASSIST ENGINEERING PROGRAMMER NEEDED.
[2023-06-28] MEDS: cephalexin 250mg capsule PO SCH ×3 (08:49→21:03)
[2023-06-28] MEDS: sertraline 50mg tablet PO SCH (08:49)
[2023-06-28] MEDS: gabapentin 300mg capsule PO SCH ×3 (08:49→21:04)
[2023-06-28] MEDS: losartan 50mg tablet PO SCH (08:52)
[2023-06-28] MEDS: insulin Lispro (HumaLOG) vial - multi-dose SQ SCH ×3 (09:30→19:17)
--- NOTE | 2023-06-28 09:31 | NUR ---
Did not advance patient to a level 5 on the insulin protocol as he had already drank some coffee before blood sugar checked this morning. Continued on level 4.
--- NOTE | 2023-06-28 10:48 | NUR ---
Pt is watching TV.
--- NOTE | 2023-06-28 12:45 | NUR ---
Pt does not drink water, he keeps asking for juice, educated on how this is not good for his diabetes. Provided pt with a pitcher of iced tea with 3 packets artificial sweetener, pt liked it and expressed thanks.
--- NOTE | 2023-06-28 13:13 | NUR ---
is visiting at bedside.
[2023-06-28] MEDS: acetaminophen 325mg tablet PO PRN (13:34)
--- NOTE | 2023-06-28 14:13 | NUR ---
Spouse brought in an electric razor. Pt is shaving.
--- NOTE | 2023-06-28 14:18 | NUR ---
Pt taken off unit to the shower accompanied by 2 techs.
--- NOTE | 2023-06-28 15:04 | NUR ---
Pt is back from the shower.
--- NOTE | 2023-06-28 15:05 | NUR ---
Pt still has cammie occipital area from 06/12/23. Obtained order to remove.
--- NOTE | 2023-06-28 15:25 | NUR ---
Removed staple from scalp.
--- NOTE | 2023-06-28 15:35 | NUR ---
Mickey took patient to shower and put clean sweat pants and a sweat shirt on.
--- NOTE | 2023-06-28 16:49 | NUR ---
Pt is napping in a gerichair with his feet up.
--- NOTE | 2023-06-28 18:30 | NUR ---
Patient is sitting up in chair waiting for dinner. Calm and cooperative. Walker nearby. Will continue to monitor.
--- NOTE | 2023-06-28 19:00 | NUR ---
Completed dinner, escorted up to BR then to bed. Gave warm blanket. Will continue to monitor.
--- NOTE | 2023-06-28 19:15 | NUR ---
Administered 11 units per sliding scale insulin protocol on level 4. Patient is alert, calm and cooperative. Resting in bed. Will continue to monitor.
[2023-06-28] MEDS: traZODone 50mg tablet PO SCH (21:03)
[2023-06-28] MEDS: ROPINIRole 1mg tablet PO SCH (21:04)
[2023-06-28] MEDS: OLANZapine 2.5MG tablet PO SCH (21:04)
--- NOTE | 2023-06-28 21:05 | NUR ---
Patient awoke to administ HS meds. Tolerated well then fell back asleep. Will continue to monitor.
--- NOTE | 2023-06-28 22:00 | NUR ---
HS Blood sugar was 71. Gave 4 donis crackers (22gm carbs) and he drank 1/4 of milk (3.5gm carbs). Total 25.5 gm for HS snack. Will continue to monitor.
[2023-06-28] MEDS: insulin glargine (Lantus) pen - multi-dose SQ SCH (22:22)
--- NOTE | 2023-06-28 22:22 | NUR ---
Increased Lantus to 24 Units per protocol. Administered SQ at this time.
--- NOTE | 2023-06-29 00:57 | NUR ---
Patient up with walker to BR to void at this time. Provided a SBA. Patient tolerated well. Will continue to monitor.
--- NOTE | 2023-06-29 03:11 | NUR ---
Patient got up to BR x 1 to void, shaved his face, brushed his hair and is sitting up in chair. Requestd juice then educated patient on carb control needs due to his diabetes. Currently up in chair with eyes closed and hot tea on bedside table. Will continue to monitor.
--- NOTE | 2023-06-29 05:40 | NUR ---
Patient asleep and comfortable. Rise/fall of chest noted. No s/sx of distress noted. Will continue to monitor.
--- NOTE | 2023-06-29 06:53 | NUR ---
Patient just awoke and ambulatory to BR, steady gait with walker. No distress observed. Continue to monitor.
[2023-06-29] MEDS: LIDOcaine 5% patch TP SCH (08:00)
--- NOTE | 2023-06-29 08:43 | NUR ---
Patient eating breakfast. No distress observed. Continue to monitor.
[2023-06-29] MEDS: gabapentin 300mg capsule PO SCH ×3 (08:57→20:52)
[2023-06-29] MEDS: cephalexin 250mg capsule PO SCH ×2 (08:57→13:08)
[2023-06-29] MEDS: sertraline 50mg tablet PO SCH (08:57)
[2023-06-29] MEDS: losartan 50mg tablet PO SCH (08:58)
[2023-06-29] MEDS: insulin Lispro (HumaLOG) vial - multi-dose SQ SCH ×3 (09:37→18:39)
--- NOTE | 2023-06-29 10:32 | NUR ---
Patient sitting in his recliner and watching T.V. No distress observed. Continue to monitor.
--- NOTE | 2023-06-29 12:29 | NUR ---
Patient eating lunch. No distress observed. Continue to monitor.
--- NOTE | 2023-06-29 14:29 | NUR ---
RN looked at patient's finger to see if he still needs the antibiotic. Patient has pus build up under the skin on the proximal end of his fore finger. Patient states his finger is very tender. RN to go ask the the doctor to come evaluate finger.
[2023-06-29] MEDS ORDERED: LIDOCAINE 1%/EPI 1:100,000 inj. 10 ML multi-dose vial IJ ONE (14:45)
--- NOTE | 2023-06-29 14:50 | NUR ---
RN asked Jeff Garcia to evaluate patient. He came and looked at patients fingers and put in orders to drain the finger. Continue to monitor.
--- NOTE | 2023-06-29 15:11 | NUR ---
Ivis Aguilar numbed patient's finger. Patient tolerated well. He waited a few minutes and then drained his finger with an 11 blade scalpel. Patient tolerated well. It was bandaged. No distress noted. Continue to monitor.
--- NOTE | 2023-06-29 16:43 | NUR ---
Patient awake and watching T.V. No distress observed. Continue to monitor.
--- NOTE | 2023-06-29 17:30 | NUR ---
Patient's BG at 52. Patient is awake and alert. Patient given his dinner tray immediately. No distress observed. Continue to monitor.
--- NOTE | 2023-06-29 19:00 | NUR ---
The patient is sitting up on his chair by his bedside. He is ambulating with the front wheel walker to and from the bathroom. He is very pleasant and cooperative.
[2023-06-29] MEDS: ROPINIRole 1mg tablet PO SCH (20:52)
[2023-06-29] MEDS: DOXYCYCLINE 100MG CAPSULE PO SCH (20:52)
[2023-06-29] MEDS: traZODone 50mg tablet PO SCH (20:52)
[2023-06-29] MEDS: OLANZapine 2.5MG tablet PO SCH (20:52)
[2023-06-29] MEDS: insulin glargine (Lantus) pen - multi-dose SQ SCH (20:59)
--- NOTE | 2023-06-29 21:00 | NUR ---
The patient appears to be sleeping
--- NOTE | 2023-06-29 23:04 | NUR ---
The patient appears to be sleeping
--- NOTE | 2023-06-30 00:47 | NUR ---
The patient is awake and up and sitting in his chair
--- NOTE | 2023-06-30 03:12 | NUR ---
The patient appears to be sleeping
--- NOTE | 2023-06-30 05:10 | NUR ---
The patient is back in bed and appears to be sleeping
--- NOTE | 2023-06-30 07:05 | NUR ---
Patient sitting in his chair asleep. No distress observed. Continue to monitor.
[2023-06-30] MEDS: LIDOcaine 5% patch TP SCH (08:00)
--- NOTE | 2023-06-30 08:43 | NUR ---
Patient eating breakfast. No distress observed. Continue to monitor.
[2023-06-30] MEDS: losartan 50mg tablet PO SCH (08:58)
[2023-06-30] MEDS: gabapentin 300mg capsule PO SCH ×3 (08:59→20:03)
[2023-06-30] MEDS: DOXYCYCLINE 100MG CAPSULE PO SCH ×2 (08:59→20:03)
[2023-06-30] MEDS: sertraline 50mg tablet PO SCH (08:59)
[2023-06-30] MEDS: insulin Lispro (HumaLOG) vial - multi-dose SQ SCH ×4 (09:21→20:30)
--- NOTE | 2023-06-30 10:41 | NUR ---
RN gave patient a warm blanket to wrap around his shoulders. No distress observed. Continue to monitor.
--- NOTE | 2023-06-30 12:36 | NUR ---
Patient eating lunch. No distress observed. Continue to monitor.
--- NOTE | 2023-06-30 14:12 | NUR ---
SHELBIE Mapkin TOOK PT OUTSIDE FOR 20 MINS. PT WAS IN WHEELCHAIR AND LOVED BEING OUTSIDE.
--- NOTE | 2023-06-30 16:53 | NUR ---
just got back from taking the pt to the shower, and pt shaved.
--- NOTE | 2023-06-30 19:09 | NUR ---
The patient up and sitting in his chair. He is pleasantly confused. He is eating well. He has not been sleeping well at night and Rigo FAY made aware and melatonin ordered.
[2023-06-30] MEDS: traZODone 50mg tablet PO SCH (20:03)
[2023-06-30] MEDS: Melatonin 3mg tablet PO SCH (20:03)
[2023-06-30] MEDS: ROPINIRole 1mg tablet PO SCH (20:03)
[2023-06-30] MEDS: OLANZapine 2.5MG tablet PO SCH (20:03)
[2023-06-30] MEDS: insulin glargine (Lantus) pen - multi-dose SQ SCH (20:29)
--- NOTE | 2023-06-30 22:38 | NUR ---
The patient is resting on his bed.
--- NOTE | 2023-07-01 00:37 | NUR ---
The patient appears to be sleeping
--- NOTE | 2023-07-01 01:36 | NUR ---
The patient abruptly got out of bed and was confused he had his walker but he would have fallen if staff was not able to catch him. He has had numerous falls here in the overflow and has had an order for one to one staffing. Nursing supervisor twisting department made aware. She reports they have had no staff to sit with him. bark fitter made aware and Dr. Jeffery made aware.
--- NOTE | 2023-07-01 03:20 | NUR ---
The patient appears to be sleeping on his bed.
--- NOTE | 2023-07-01 05:30 | NUR ---
The patient appears to be sleeping
--- NOTE | 2023-07-01 07:08 | NUR ---
Patient sitting up in his chair sleeping. RN just gave patient a couple of warm blankets. No distress observed. Continue to monitor.
[2023-07-01] MEDS: losartan 50mg tablet PO SCH (08:00)
[2023-07-01] MEDS: LIDOcaine 5% patch TP SCH (08:00)
[2023-07-01] MEDS: DEXTROSE 15 GM of carb/4 tabs (each vial/BOTTLE has 4 tablets) PO PRN (08:07)
--- NOTE | 2023-07-01 08:33 | NUR ---
Patient eating breakfast. Morning BG was 68. Patient moved back to Level 2. Patient was given Glucose tablets at 0805
--- NOTE | 2023-07-01 08:51 | NUR ---
BG after glucose tabs and eating was 161. Patient never showed signs of low BG. No distress observed. Continue to monitor.
[2023-07-01] MEDS: DOXYCYCLINE 100MG CAPSULE PO SCH ×2 (08:52→20:12)
[2023-07-01] MEDS: gabapentin 300mg capsule PO SCH ×3 (08:52→20:11)
[2023-07-01] MEDS: sertraline 50mg tablet PO SCH (08:54)
--- NOTE | 2023-07-01 10:45 | NUR ---
Patient walking around the unit with his walker. No distress observed. Continue to monitor.
--- NOTE | 2023-07-01 12:38 | NUR ---
Patient eating lunch. No distress observed. Continue to monitor.
[2023-07-01] MEDS: insulin Lispro (HumaLOG) vial - multi-dose SQ SCH ×2 (12:46→18:35)
--- NOTE | 2023-07-01 14:11 | NUR ---
Patient sitting in his chair and watching T.V. No distress observed. Continue to monitor.
--- NOTE | 2023-07-01 16:07 | NUR ---
Patient continues to watch T.V. No distress observed. Continue to monitor.
--- NOTE | 2023-07-01 18:11 | NUR ---
Patient eating dinner. No distress observed. Continue to monitor.
--- NOTE | 2023-07-01 20:01 | NUR ---
Patient getting into bed. RN gave patient a warm blanket for his feet. Continue to monitor.
[2023-07-01] MEDS: traZODone 50mg tablet PO SCH (20:10)
[2023-07-01] MEDS: ROPINIRole 1mg tablet PO SCH (20:11)
[2023-07-01] MEDS: Melatonin 3mg tablet PO SCH (20:11)
[2023-07-01] MEDS: OLANZapine 2.5MG tablet PO SCH (20:11)
[2023-07-01] MEDS: insulin glargine (Lantus) pen - multi-dose SQ SCH (21:00)
--- NOTE | 2023-07-01 23:33 | NUR ---
Patient sleeping with the covers over his head. Respirations nonlabored. RN covered patient's feet with a warm blanket. No distress observed. Continue to monitor.
--- NOTE | 2023-07-02 00:10 | NUR ---
Patient got back up and is sleeping in his chair. No distress observed. Continue to monitor.
--- NOTE | 2023-07-02 01:13 | NUR ---
Patient moved back to the bed. No distress observed. Continue to monitor.
--- NOTE | 2023-07-02 02:52 | NUR ---
Patient sleeping on his right side. No distress observed. Continue to monitor.
--- NOTE | 2023-07-02 04:33 | NUR ---
Patient sleeping supine in bed. Non-labored respirations. No distress observed. Continue to monitor.
--- NOTE | 2023-07-02 05:42 | NUR ---
Patient awake and laying in bed. No distress observed. Continue to monitor.
--- NOTE | 2023-07-02 06:30 | NUR ---
Received pt. sleeping in bed, respirations are even and unlabored.
--- NOTE | 2023-07-02 08:24 | NUR ---
Pt. is sitting up in a recliner by bedside eating breakfast at this time. He is able to ambulate independently with use of a FWW. Will continue to monitor closely and maintain fall precautions.
[2023-07-02] MEDS: insulin Lispro (HumaLOG) vial - multi-dose SQ SCH ×4 (08:50→21:06)
[2023-07-02] MEDS: gabapentin 300mg capsule PO SCH ×3 (08:54→20:15)
[2023-07-02] MEDS: DOXYCYCLINE 100MG CAPSULE PO SCH ×2 (08:54→20:14)
[2023-07-02] MEDS: losartan 50mg tablet PO SCH (08:54)
[2023-07-02] MEDS: sertraline 50mg tablet PO SCH (08:54)
--- NOTE | 2023-07-02 10:53 | NUR ---
Pt. up ambulating to the bathroom at this time, he walks with a steady gait with use of FWW.
--- NOTE | 2023-07-02 11:56 | NUR ---
Pt. spoke with his on the phone. Per pt's , she will be coming to visit him on Wednesday accompanied by a worker from [facility] who will be interviewing him for possible placement at a facility. Pt's does not want pt. to be notified of this at this time, will endorse to Noc shift.
--- NOTE | 2023-07-02 12:27 | NUR ---
Pt. is sitting up in his recliner at bedside eating lunch at this time.
--- NOTE | 2023-07-02 14:48 | NUR ---
Pt's is here visiting him at this time.
--- NOTE | 2023-07-02 16:30 | NUR ---
Pt. is sitting in recliner at bedside watching TV at this time.
--- NOTE | 2023-07-02 17:59 | NUR ---
Pt. continues to sit up in his recliner watching TV at this time.
--- NOTE | 2023-07-02 19:41 | NUR ---
Received report from Sia Nolan RN. Client ate 100% of dinner. Sitting in chair. AO x 3. Ambulated to restroom using FWW at 19:35.
[2023-07-02] MEDS: Melatonin 3mg tablet PO SCH (20:14)
[2023-07-02] MEDS: traZODone 50mg tablet PO SCH (20:14)
[2023-07-02] MEDS: ROPINIRole 1mg tablet PO SCH (20:15)
[2023-07-02] MEDS: OLANZapine 2.5MG tablet PO SCH (20:16)
--- NOTE | 2023-07-02 20:50 | NUR ---
Accucheck at 20:25 was 308. Client had dinner on hour ago. Took PM meds. Pleasant and cooperative.
[2023-07-02] MEDS: insulin glargine (Lantus) pen - multi-dose SQ SCH (21:07)
--- NOTE | 2023-07-02 21:53 | NUR ---
Client awake and asked for snack. Given cheese, crackers, and milk. Ambulated to restroom using FWW. Client is confused. Stated there are Ritz crackers and peanut butter in the pantry.
--- NOTE | 2023-07-02 23:30 | NUR ---
Client wakes up to ambulate to the restroom. He is confused and believes he is at home. He asked to "get something from my closet". Client can be re-oriented successfully when reminded he is in the Hospital. Client sat in chair for awhile before returning to bed.
--- NOTE | 2023-07-03 01:30 | NUR ---
Client is asleep. Lying on left side. Resp even and unlabored.
--- NOTE | 2023-07-03 03:30 | NUR ---
Sleeping on left side. Resp even and unlabored.
--- NOTE | 2023-07-03 05:30 | NUR ---
Client ambulated to the restroom several times during the shift. Had several snacks and decafe coffee during the night. Sleeping in chair at bedside. Resp even and unlabored.
--- NOTE | 2023-07-03 06:30 | NUR ---
Received pt. sleeping in his reclining chair at bedside. Respirations are even and unlabored. Addendum: 07/03/23 at 1023 by YASMINE Pt. is in direct line of sight of the nursing station.
--- NOTE | 2023-07-03 08:10 | NUR ---
Pt. up to use the bathroom at this time, he continues to ambulate with use of FWW and a steady gait.
[2023-07-03] MEDS: losartan 50mg tablet PO SCH (08:54)
[2023-07-03] MEDS: DOXYCYCLINE 100MG CAPSULE PO SCH ×2 (08:55→20:09)
[2023-07-03] MEDS: sertraline 50mg tablet PO SCH (08:55)
[2023-07-03] MEDS: gabapentin 300mg capsule PO SCH ×3 (08:55→20:09)
[2023-07-03] MEDS: insulin Lispro (HumaLOG) vial - multi-dose SQ SCH ×2 (09:03→13:06)
--- NOTE | 2023-07-03 10:22 | NUR ---
Pt. requested a change of clean clothing and was able to change independently at bedside. Fall precautions remain in place.
--- NOTE | 2023-07-03 12:13 | NUR ---
Pt. is sitting up eating lunch at bedside at this time.
--- NOTE | 2023-07-03 14:08 | NUR ---
Pt. ate all of his lunch and continues to sit up in his recliner at bedside watching TV.
--- NOTE | 2023-07-03 16:31 | NUR ---
Pt. continues to sit in his recliner at bedside watching TV at this time.
--- NOTE | 2023-07-03 17:50 | NUR ---
Pt's blood glucose was assessed prior to dinner and was 59, he denied any s/s except for "feeling hungry." Pt. was provided with a snack and then dinner came shortly after this. Pt. ate dinner and his blood glucose was rechecked and was 90. Will endorse to Noc shift and continue to monitor pt. closely.
--- NOTE | 2023-07-03 19:39 | NUR ---
The patient is resting on his bed. He appears to be sleeping. Respirations even and unlabored.
--- NOTE | 2023-07-03 19:45 | NUR ---
The patient up to use the bathroom.
[2023-07-03] MEDS: OLANZapine 2.5MG tablet PO SCH (20:08)
[2023-07-03] MEDS: Melatonin 3mg tablet PO SCH (20:09)
[2023-07-03] MEDS: traZODone 50mg tablet PO SCH (20:09)
[2023-07-03] MEDS: ROPINIRole 1mg tablet PO SCH (20:09)
[2023-07-03] MEDS: insulin glargine (Lantus) pen - multi-dose SQ SCH (20:24)
--- NOTE | 2023-07-03 20:32 | NUR ---
The patient is up sitting in his chair with his Ipad. He is very pleasant
--- NOTE | 2023-07-03 23:01 | NUR ---
The patient is sitting up in chair and nodding off and on. He periodically walks around his area. He moved the TV over by his bed in anticipation of watching foot ball tomorrow.
--- NOTE | 2023-07-04 00:03 | NUR ---
Patient up to the nursing station and complaining of being hungry. [place] [facility] given.
--- NOTE | 2023-07-04 00:57 | NUR ---
The patient is sitting up in his chair sleeping
--- NOTE | 2023-07-04 03:08 | NUR ---
The patient up to use the bathroom
--- NOTE | 2023-07-04 05:22 | NUR ---
The patient appears to be sleeping
--- NOTE | 2023-07-04 07:21 | NUR ---
Pt has been up sitting in a chair since the start of this shift. Pt drinking coffee and dosing off. Up to the BR once.
--- NOTE | 2023-07-04 07:21 | NUR ---
Pt is up drinking coffee and napping.
[2023-07-04] MEDS: gabapentin 300mg capsule PO SCH ×3 (07:48→20:00)
[2023-07-04] MEDS: sertraline 50mg tablet PO SCH (07:48)
[2023-07-04] MEDS: losartan 50mg tablet PO SCH (07:49)
[2023-07-04] MEDS: DOXYCYCLINE 100MG CAPSULE PO SCH ×2 (07:50→19:59)
--- NOTE | 2023-07-04 08:25 | NUR ---
BS 211. Insulin dose 5 units. Pt ate all of his breakfast. He is pleasant and cooperative. Took all of his medications. Is requesting a shower and football.
[2023-07-04] MEDS: insulin Lispro (HumaLOG) vial - multi-dose SQ SCH ×3 (08:56→17:57)
--- NOTE | 2023-07-04 10:00 | NUR ---
Pt is taking a shower.
--- NOTE | 2023-07-04 11:15 | NUR ---
Pt is eating sugar free jello and watching football.
--- NOTE | 2023-07-04 12:23 | NUR ---
Accucheck 95 prior to lunch. Pt is now eating and watching TV.
--- NOTE | 2023-07-04 14:43 | NUR ---
Pt continues to watch TV while sitting up in a chair. He ambulates with a FWW to the BR. He is social and smiling with staff. Pleasant.
--- NOTE | 2023-07-04 18:40 | NUR ---
The patient is sitting up on his chair and periodically dosing off while drinking coffee and watching tv. He is pleasant and cooperative when awake.
[2023-07-04] MEDS: Melatonin 3mg tablet PO SCH (20:00)
[2023-07-04] MEDS: OLANZapine 2.5MG tablet PO SCH (20:00)
[2023-07-04] MEDS: ROPINIRole 1mg tablet PO SCH (20:00)
[2023-07-04] MEDS: traZODone 50mg tablet PO SCH (20:00)
[2023-07-04] MEDS: insulin glargine (Lantus) pen - multi-dose SQ SCH (20:07)
--- NOTE | 2023-07-04 21:35 | NUR ---
The patient appears to be sleeping
--- NOTE | 2023-07-04 23:21 | NUR ---
The patient appears to be sleeping
--- NOTE | 2023-07-05 01:03 | NUR ---
The patient appears to be sleeping
--- NOTE | 2023-07-05 02:50 | NUR ---
The patient appears to be sleeping
--- NOTE | 2023-07-05 05:05 | NUR ---
The patient appears to be sleeping while sitting up in his chair.
--- NOTE | 2023-07-05 06:55 | NUR ---
Patient sitting in his recliner, has been busy this morning drinking coffee, going to the restroom. Going through his toiletries.
[2023-07-05] MEDS: sertraline 50mg tablet PO SCH (08:24)
[2023-07-05] MEDS: DOXYCYCLINE 100MG CAPSULE PO SCH ×2 (08:24→20:24)
[2023-07-05] MEDS: gabapentin 300mg capsule PO SCH ×3 (08:24→20:24)
[2023-07-05] MEDS: losartan 50mg tablet PO SCH (08:27)
[2023-07-05] MEDS: insulin Lispro (HumaLOG) vial - multi-dose SQ SCH ×3 (08:45→19:07)
--- NOTE | 2023-07-05 09:51 | NUR ---
Patient's family is visiting. SW here. Patient is being evaluated for placement.
--- NOTE | 2023-07-05 10:28 | NUR ---
Patient's family left. was very grateful for care provided to her .
--- NOTE | 2023-07-05 14:10 | NUR ---
Patient sitting in his recliner watching t.v. Patient has been ambulating independently with his FWW. Patient's memory seems to be improving as he can recall previous conversations with tech.
--- NOTE | 2023-07-05 14:44 | NUR ---
taking pt outside for some fresh air and different scenery
--- NOTE | 2023-07-05 15:26 | NUR ---
just got back from taking the pt outside. bonilla saw us outside and had brought him some mcdonalds and pt ate a late lunch outside. pt loved it.
--- NOTE | 2023-07-05 17:37 | NUR ---
Patient sitting in his chair watching football.
--- NOTE | 2023-07-05 17:54 | NUR ---
Patient's blood glucose for the day was 173, 145, 176. Coverage given for each meal.
--- NOTE | 2023-07-05 19:00 | NUR ---
The patient is sitting up in his chair after eating 100% of his dinner. His called and that seemed to go well.
[2023-07-05] MEDS: OLANZapine 2.5MG tablet PO SCH (20:24)
[2023-07-05] MEDS: ROPINIRole 1mg tablet PO SCH (20:24)
[2023-07-05] MEDS: traZODone 50mg tablet PO SCH (20:24)
[2023-07-05] MEDS: Melatonin 3mg tablet PO SCH (20:24)
[2023-07-05] MEDS: insulin glargine (Lantus) pen - multi-dose SQ SCH (20:38)
--- NOTE | 2023-07-05 21:04 | NUR ---
The patient is currently sleeping on his bed.
--- NOTE | 2023-07-05 22:29 | NUR ---
The patient appears to be sleeping
--- NOTE | 2023-07-06 01:04 | NUR ---
The patient appears to be sleeping
--- NOTE | 2023-07-06 03:06 | NUR ---
The patient appears to be sleeping
--- NOTE | 2023-07-06 05:37 | NUR ---
The patient is sitting up in his chair and drinking coffee
--- NOTE | 2023-07-06 06:54 | NUR ---
Patient is sitting up in the chair watching his Ipad, he is within view of nursing. Walker next to patient to assist with ambulating
[2023-07-06] MEDS: sertraline 50mg tablet PO SCH (07:26)
[2023-07-06] MEDS: gabapentin 300mg capsule PO SCH ×3 (07:26→19:50)
[2023-07-06] MEDS: losartan 50mg tablet PO SCH (07:26)
--- NOTE | 2023-07-06 10:02 | NUR ---
patient is sitting up in the chair.
--- NOTE | 2023-07-06 12:00 | NUR ---
Patient up to restroom with walker and then back into chair
--- NOTE | 2023-07-06 14:01 | NUR ---
Break RN:Patient on a recliner at bedside,awake.No reported discomfort.
--- NOTE | 2023-07-06 14:32 | NUR ---
patient up to restroom, back to chair to watch TV
--- NOTE | 2023-07-06 16:02 | NUR ---
patient sitting up in [place] watching the news on his ipad
--- NOTE | 2023-07-06 16:31 | NUR ---
[facility] ( [facility] ) called to talk with him. She also notified me that [facility] in [place] was willing to accept him as a patient. She said she heard from the director there that he should be transfered tomorrow.
--- NOTE | 2023-07-06 17:57 | NUR ---
Patient sitting up in the chair eating dinner
[2023-07-06] MEDS: insulin Lispro (HumaLOG) vial - multi-dose SQ SCH ×2 (18:07→20:04)
--- NOTE | 2023-07-06 18:40 | NUR ---
Patient is up walking around unit using a FWW. Pt is alert and oriented x3. Pt used the bathroom then went back to his recliner. Pt is sleeping at this time. RR even abd unlabored, pt in no distress.
[2023-07-06] MEDS: OLANZapine 2.5MG tablet PO SCH (19:50)
[2023-07-06] MEDS: ROPINIRole 1mg tablet PO SCH (19:50)
[2023-07-06] MEDS: traZODone 50mg tablet PO SCH (19:50)
[2023-07-06] MEDS: Melatonin 3mg tablet PO SCH (19:50)
[2023-07-06] MEDS: insulin glargine (Lantus) pen - multi-dose SQ SCH (20:03)
--- NOTE | 2023-07-06 20:07 | NUR ---
Pt is compliant with all HS medications. Blood glucose is 182. 29 units of Lantus and 1 unit of regular insulin given.
--- NOTE | 2023-07-06 21:14 | NUR ---
Pt in bed resting quietly. RR even and pt in no distress.
--- NOTE | 2023-07-06 23:04 | NUR ---
Pt resting in bed with eyes closed, in no distress. Monitor for safety.
--- NOTE | 2023-07-07 00:55 | NUR ---
Pt is restless. Asking for coffee. Pt is up out of bed into his chair then a short time goes by, he's back in bed. RR even, pt in no distress. Monitor for safety.
--- NOTE | 2023-07-07 03:00 | NUR ---
Pt asleep in bed on his right side. RR even and unlabored. Pt in no distress. Monitor for safety.
--- NOTE | 2023-07-07 05:03 | NUR ---
Pt awake and sitting on the side of his bed. RR unlabored. Ptm ambulated to BR using FWW with steady gait. Monitor for safety.
--- NOTE | 2023-07-07 08:00 | NUR ---
Pt. awake and eating breakfast in chair.
[2023-07-07] MEDS: losartan 50mg tablet PO SCH (08:01)
[2023-07-07] MEDS: gabapentin 300mg capsule PO SCH (08:01)
[2023-07-07] MEDS: sertraline 50mg tablet PO SCH (08:01)
[2023-07-07] MEDS: insulin Lispro (HumaLOG) vial - multi-dose SQ SCH (08:55)
--- NOTE | 2023-07-07 10:00 | NUR ---
Pt. sitting in chair watching tablet and requesting coffee.
[2023-07-07 12:12] VITALS: BP 112/54; PULSE 60; RESP 16; TEMP 98; O2SAT 100
== END 2023-07-07 11:30 | disposition hospice, home (50) ==
LOC: ER 18:10
DX: E11.65 Type 2 diabetes mellitus with hyperglycemia (principal); Z20.822 Contact with and (suspected) exposure to COVID-19; L02.512 Cutaneous abscess of left hand; I10 Essential (primary) hypertension; F03.90 Unspecified dementia, unspecified severity, without behavioral disturbance, psychotic disturbance, mood disturbance, and anxiety
CPT/HCPCS: 26010; 36415; 80053; 80305; 81001; 81003; 82948; 83605; 83735; 84145; 84484; 85008; 85025; 87040; 87088; 87811; 90471; 96361; 96365; 96372; 96375; 99285; J1815; J7030; 96360